=== PATIENT | female | born 2000 | race African-American/Black ===

== ENCOUNTER 2019-10-06 12:20 | Outpatient (CLI) | payer MEDICAID ==
[~2019-10-06] VITALS: Ht 165.1 cm; Wt 55.0 kg
[~2019-10-06 12:20] MED LIST: HYDR25CA PO; PRD20T PO
--- NOTE | 2019-10-06 12:45 | NUR ---
OSBALDO LYONS presented to unit via WC from ED, accompanied by S/O, with c/o ABD PAIN. OSBALDO LYONS weighed, gowned, voided, and to bed. EFHM and TOCO applied, VS taken. OSBALDO LYONS oriented to bed controls, call light, TV, heat, and A/C controls.
[2019-10-06 12:50] VITALS: BP 106/57
--- NOTE | 2019-10-06 12:50 | NUR ---
PT REPORTS LOWER LT ABDOMINAL PAIN JUST ABOVE HIP. PT NOTES PAIN RADIATES UP TO RIB AREA AT TIMES AND HAS BEEN HURTING SINCE YESTERDAY MORNING. PT REPORTS SEEING DR WING IN THE OFFICE YESTERDAY AND WAS TOLD IT WAS ROUND LIGAMENT PAIN AND TO USE TYLENOL AND WARM BATHS FOR PAIN RELIEF. PT DENIES DOING ANYTHING TO RELIEVE PAIN FOLLOWING APPOINTMENT. PT DENIES CONTRACTIONS, VAGINAL BLEEDING, LEAKING OF FLUID OR OTHER C/O. PT REPORTS FM. INITIAL ASSESSMENT COMPLETED, VSS, TOCO APPLIED, FHTS DOPPLERED AT 144 BPM. SEE INTERVENTIONS FOR DETAILED ASSESSMENTS. UA COLLECTED AND CBC DRAWN BY THIS RN, SENT TO LAB. NOTIFIED DR WING PRIOR TO PT ARRIVAL AND NEW ORDERS RECEIVED. DR WING PRESENT ON OB UNIT. WILL MONITOR CLOSELY.
[2019-10-06 13:00] VITALS: BP 106/57
[2019-10-06 13:14] LABS: BASOPHILS % (AUTO) 0 % (0-10); EOSINOPHILS # (AUTO) 0.1 10^3/uL (0.0-0.3); EOSINOPHILS % (AUTO) 1 % (0-10); HEMATOCRIT 34 % (35-52); HEMOGLOBIN 11.8 G/DL (11.5-16.0); LYMPHOCYTES # (AUTO) 1.6 X 10^3 (1.0-4.0); LYMPHOCYTES % (AUTO) 18 % (12-44); MEAN CORPUSCULAR HEMOGLOBIN 32 PG (25-34); MEAN CORPUSCULAR HGB CONC 35 G/DL (32-36); MEAN CORPUSCULAR VOLUME 90 FL (80-99); MEAN PLATELET VOLUME 10.3 FL (7.4-10.4); MONOCYTES # (AUTO) 0.6 X 10^3 (0.0-1.0); MONOCYTES % (AUTO) 7 % (0-12); NEUTROPHILS # (AUTO) 6.7 X 10^3 (1.8-7.8); NEUTROPHILS % (AUTO) 74 % (42-75); PLATELET COUNT 238 10^3/uL (130-400); RED CELL DISTRIBUTION WIDTH 12.6 % (10.0-14.5)
[2019-10-06 13:43] LABS: BILIRUBIN,URINE NEGATIVE (NEGATIVE); CLARITY,URINE SL CLOUDY; COLOR,URINE YELLOW; GLUCOSE, URINE (UA) NEGATIVE (NEGATIVE); KETONES,URINE NEGATIVE (NEGATIVE); LEUKOCYTE ESTERASE ,URINE NEGATIVE (NEGATIVE); NITRITE,URINE NEGATIVE (NEGATIVE); PROTEIN,URINE NEGATIVE (NEGATIVE)
[2019-10-06 14:11] LABS: AMORPHOUS SEDIMENT,UR FEW AMOR PHOSPHATE /LPF; BACTERIA,URINE MODERATE /HPF; WBC,URINE RARE /HPF
[2019-10-06] MEDS ORDERED: ACETAMINOPHEN 500 MG TAB (TYLENOL) PO PRN (15:45)
--- NOTE | 2019-10-06 16:00 | NUR ---
DR WING HERE, NEW ORDERS RECEIVED, REVIEWED LAB RESULTS. NO CONTRACTIONS NOTED THROUGHOUT MONITORING.
--- NOTE | 2019-10-06 16:20 | NUR ---
D/C INSTRUCTIONS EXPLAINED TO PT AND S/O, PT VERBALIZES UNDERSTANDING NO QUESTIONS NOTED, SIGNED, PT TO FOLLOW UP WITH DR SCHEDULED OR RETURN TO OB IF NEEDED.
--- NOTE | 2019-10-06 16:25 | NUR ---
PT TAKEN TO PRIVATE VEHICLE BY WC, S/O AT SIDE, NO DISTRESS NOTED.
--- NOTE | 2019-10-08 08:47 | Physician Query-Final Dx ---
AURY BOYKIN 10/08/19 0846: Clinic Account Progress/Dx Physician Query: Please give diagnosis Please give # weeks gestation Date of Service Oct 06, 2019 at 12:20 JAIME WING DO 10/08/19 2236: Clinic Account Progress/Dx DIAGNOSIS: Diagnosis 22 week gestation round ligament pain AURY BOYKIN Oct 08, 2019 08:46 JAIME WING DO Oct 08, 2019 22:36
== END 2019-10-06 16:25 | disposition home or self-care (01) ==
LOC: WSo 12:20
PROVIDERS: ATTEND Obstetrics & Gynecology
DX: O26.892 Other specified pregnancy related conditions, second trimester (principal); Z3A.22 22 weeks gestation of pregnancy
CPT/HCPCS: 36415; 81000; 85025; 99213

== ENCOUNTER → 2019-10-08 | Outpatient (CLI) | payer MEDICAID ==
--- NOTE | 2019-10-08 12:02 | Diagnostic Imaging Report ---
INDICATION: survey. TECHNIQUE: Multiple real-time grayscale images were obtained over the gravid uterus. COMPARISON: None. FINDINGS: There is a single live fetus in a breech presentation. heart rate was recorded at 150 bpm. Placenta is posterior. Amniotic fluid volume is normal. Cervical length is 3.7 cm. survey demonstrates kidneys, bladder and stomach to be unremarkable. Brain is unremarkable. There is a four-chamber heart. There is a three-vessel cord with normal insertion. Maternal adnexa was not evaluated. Biometrical measurements are as follows: Biparietal 4.79 cm, age 20 weeks 4 days. Head circumference 18.78 cm, age 21 weeks 1 days. Abdominal circumference 16.41 cm, age 21 weeks 4 days. Femur length 3.39 cm, age 20 weeks 5 days. Sonographic estimate age: 21 weeks 0 days. Sonographic estimated date of delivery: 02/17/2020. Estimated Weight: 397 gm (+/- 58 gm). LMP percentile: 40%. heart rate: 150 beats per minute. number: 1 of 1. IMPRESSION: Single live IUP 21 weeks 0 days gestational age. Estimated date of confinement sonographically is 02/17/2020. Dictated by: Dictated on workstation # [id number]
== END ==
LOC: RAD 09:47
PROVIDERS: ATTEND Obstetrics & Gynecology
DX: Z36.89 Encounter for other specified antenatal screening (principal); Z3A.21 21 weeks gestation of pregnancy
CPT/HCPCS: 76805

== ENCOUNTER → 2019-12-17 | Outpatient (CLI) | payer MEDICAID ==
--- NOTE | 2019-12-17 13:22 | Diagnostic Imaging Report ---
INDICATION: Assessment for interval growth TECHNIQUE: Multiple real-time grayscale images were obtained over the gravid uterus. COMPARISON: 10/08/2019 FINDINGS: A single viable currently in cephalic presentation. The placenta is along the posterior aspect without previa. Normal amount of amniotic fluid, index 13.1 cm. anatomical assessment was not performed. Maternal adnexa not visualized. The cervical length is 3.9 cm appears unremarkable. Biometrical measurements are as follows: Biparietal 7.68 cm, age 30 weeks 6 days. Head circumference 28.60 cm, age 31 weeks 3 days. Abdominal circumference 27.21 cm, age 31 weeks 3 days. Femur length 5.66 cm, age 29 weeks 6 days. Sonographic estimate age: 31 weeks 0 days. Sonographic estimated date of delivery: 02/18/2020. Estimated Weight: 1638 gm (+/- 239 gm). LMP percentile: 27%. heart rate: 150 beats per minute. number: 1 of 1. IMPRESSION: 1. Single viable currently in cephalic presentation, sonographic estimated age 31 weeks 0 days for an estimated date of delivery 02/18/2020. This corresponds to previous ultrasound dating. Dictated by: Dictated on workstation # [id number]
== END ==
LOC: RAD 10:36
PROVIDERS: ATTEND Nurse Practitioner Women's Health
DX: Z34.83 Encounter for supervision of other normal pregnancy, third trimester (principal); Z79.899 Other long term (current) drug therapy; Z72.0 Tobacco use; Z3A.31 31 weeks gestation of pregnancy
CPT/HCPCS: 76805

== ENCOUNTER 2020-02-07 19:56 | Inpatient (IN) | payer MEDICAID ==
[2020-02-07] VITALS (8 sets, daily range): BP systolic 109–130; BP diastolic 63–87
[~2020-02-07] VITALS: Ht 165 cm; Wt 63.5 kg
[~2020-02-07 19:56] MED LIST changes: +D5 LR IV SOLUTION 1,000 ML IV ONE
[2020-02-07] MEDS ORDERED: LACTATED RINGERS 1,000 ML IV SCH (19:58)
[2020-02-07] MEDS ORDERED: D5 LR IV SOLUTION 1,000 ML IV SCH (19:58)
[2020-02-07] MEDS ORDERED: TERBUTALINE INJ 1 MG/ML (BRETHINE) AMP SC PRN (20:00)
[2020-02-07] MEDS ORDERED: ZOLPIDEM 5 MG (AMBIEN) TAB PO PRN (20:00)
[2020-02-07] MEDS ORDERED: MINERAL OIL CONCENTRATE 99.9% 15 ML UDC TOP PRN ×2 (20:00)
[2020-02-07] MEDS ORDERED: MISOPROSTOL 100 MCG (CYTOTEC) TAB PO ONE (20:00)
[2020-02-07] MEDS ORDERED: LIDOCAINE 1% INJ 20 ML 20 ML VIAL INJ PRN (20:00)
--- NOTE | 2020-02-07 20:00 | NUR ---
OSBALDO LYONS presented to unit via from ED, accompanied by s/o, with c/o INDUCTION 38 01/14. OSBALDO LYONS weighed, gowned, voided, and to bed. EFHM and TOCO applied, VS taken. OSBALDO LYONS oriented to bed controls, call light, TV, heat, and A/C controls.
[2020-02-07] MEDS: D5 LR IV SOLUTION 1,000 ML IV SCH (20:41)
[2020-02-07 20:49] LABS: BASOPHILS % (AUTO) 0 % (0-10); EOSINOPHILS # (AUTO) 0.5 10^3/uL (0.0-0.3); EOSINOPHILS % (AUTO) 5 % (0-10); HEMATOCRIT 33 % (35-52); HEMOGLOBIN 10.9 G/DL (11.5-16.0); LYMPHOCYTES # (AUTO) 1.7 X 10^3 (1.0-4.0); LYMPHOCYTES % (AUTO) 18 % (12-44); MEAN CORPUSCULAR HEMOGLOBIN 30 PG (25-34); MEAN CORPUSCULAR HGB CONC 33 G/DL (32-36); MEAN CORPUSCULAR VOLUME 89 FL (80-99); MEAN PLATELET VOLUME 12.1 FL (7.4-10.4); MONOCYTES % (AUTO) 10 % (0-12); NEUTROPHILS # (AUTO) 6.2 X 10^3 (1.8-7.8); NEUTROPHILS % (AUTO) 67 % (42-75); PLATELET COUNT 199 10^3/uL (130-400); RED CELL DISTRIBUTION WIDTH 13.7 % (10.0-14.5); WHITE BLOOD COUNT 9.3 10^3/uL (4.3-11.0)
[2020-02-07 21:08] LABS: ALANINE AMINOTRANSFERASE 7 U/L (0-55); ALBUMIN 3.1 GM/DL (3.2-4.5); ALKALINE PHOSPHATASE 244 U/L (40-136); BILIRUBIN,TOTAL 0.2 MG/DL (0.1-1.0); BUN/CREATININE RATIO 10; CALCIUM 8.6 MG/DL (8.5-10.1); CARBON DIOXIDE 14 MMOL/L (21-32); CHLORIDE 108 MMOL/L (98-107); CREATININE SERUM 0.62 MG/DL (0.60-1.30); GFR ESTIMATED > 60; GLUCOSE 74 MG/DL (70-105); POTASSIUM 3.8 MMOL/L (3.6-5.0); SODIUM 137 MMOL/L (135-145); TOTAL PROTEIN 6.6 GM/DL (6.4-8.2); URIC ACID 4.7 MG/DL (2.6-7.2)
[2020-02-07 22:27] LABS: BILIRUBIN,URINE NEGATIVE (NEGATIVE); CLARITY,URINE SL CLOUDY; COLOR,URINE BROWN; GLUCOSE, URINE (UA) NEGATIVE (NEGATIVE); KETONES,URINE NEGATIVE (NEGATIVE); LEUKOCYTE ESTERASE ,URINE NEGATIVE (NEGATIVE); NITRITE,URINE NEGATIVE (NEGATIVE); PH,URINE 6.5 (5-9); PROTEIN,URINE 3+ (NEGATIVE)
[2020-02-07 22:40] LABS: AMORPHOUS SEDIMENT,UR MOD AMOR URATES /LPF; BACTERIA,URINE MODERATE /HPF; RBC,URINE 0-2 /HPF
[2020-02-08] VITALS (73 sets, daily range): BP systolic 80–155; BP diastolic 54–87
[2020-02-08] MEDS: MISOPROSTOL 100 MCG (CYTOTEC) TAB PO SCH ×2 (01:22→05:58)
[2020-02-08] MEDS: D5 LR IV SOLUTION 1,000 ML IV SCH ×2 (04:12→12:47)
[2020-02-08] MEDS ORDERED: morphine INJ 10 MG/ML 1ML (SYR OR VIAL) IVP STA (05:39)
[2020-02-08] MEDS ORDERED: morphine INJ 10 MG/ML 1ML (SYR OR VIAL) ONE (05:39)
[2020-02-08] MEDS ORDERED: PROMETHAZINE INJ 25 MG/ML (PHENERGAN) AMP ONE (05:42)
[2020-02-08] MEDS ORDERED: PROMETHAZINE INJ 25 MG/ML (PHENERGAN) AMP IVP PRN (05:45)
--- NOTE | 2020-02-08 10:18 | NUR ---
anesthesia notified of pt's request for epidural placement.
--- NOTE | 2020-02-08 10:23 | NUR ---
called to check on pt's status. update given, no new orders received @ time.
[2020-02-08] MEDS ORDERED: BUPIVACAINE 0.25% 30 ML (SENSORCAINE) VIAL ONE (10:24)
[2020-02-08] MEDS ORDERED: fentaNYL INJECTION 100 MCG/2 ML AMP ONE (10:24)
[2020-02-08] MEDS ORDERED: fentaNYL 2 mcg/ml BUPIVA 0.125 100 ML ONE (10:25)
--- NOTE | 2020-02-08 10:33 | NUR ---
AUGUSTA Negron here for epidural placement. Procedure explained, consent reviewed and signed by anesthesia. Questions answered to patient's satisfaction. Time out taken to verify correct patient/procedure. 1035- Patient up to side of bed, assisted into sitting position. Betadine prep done x3 and sterile drape applied. 1040- Local done, see anesthesia record. 1044- Test dose given, see anesthesia record for drug and dosage. Epidural catheter secured in place. Epidural placement complete. 1049-Assisted back into bed, monitors adjusted. Epidural dosed, see anesthesia record. 1050- Epidural of Sufenta/Bupvicaine @12cc/hr stated per pump. Patient tolerated procedure well.
[2020-02-08] MEDS ORDERED: LACTATED RINGERS 1,000 ML IV SCH (11:36)
[2020-02-08] MEDS ORDERED: EPIDURAL (fentaNYL 2 MCG/ML BUPIVA 0.125%)100 ML BAG EPI PRN (11:45)
[2020-02-08] MEDS ORDERED: diphenhydrAMINE 50 MG/ML INJ (BENADRYL) IV PRN (11:45)
[2020-02-08] MEDS ORDERED: NALOXONE 0.4 MG/ML 1 ML (NARCAN) VIAL IV PRN ×2 (11:45)
[2020-02-08] MEDS ORDERED: METOCLOPRAMIDE INJ 10 MG/2 ML (REGLAN) IV PRN (11:45)
[2020-02-08] MEDS ORDERED: ONDANSETRON 4 MG/2 ML (SDV) Z0FRAN IV PRN (11:45)
[2020-02-08] MEDS ORDERED: OXYTOCIN PRE-MIX DRIP 500 ML IV ONE (17:12)
[2020-02-08] MEDS: OXYTOCIN PRE-MIX DRIP 500 ML IV SCH ×2 (17:21→19:10)
[2020-02-08] MEDS ORDERED: MEASLES,MUMPS,RUBELLA 1 EA INJ SQ ONE (18:00)
[2020-02-08] MEDS ORDERED: BENZOCAINE/MENTHOL (DERMOPLAST) 60 ML CAN TP PRN (18:00)
[2020-02-08] MEDS ORDERED: WITCH HAZEL(TUCKS) 40 EA JAR TOP PRN (18:00)
[2020-02-08] MEDS ORDERED: TETANUS,DIPTH,PERTUSS P/F (BOOSTRIX) 0.5 ML VIAL IM ONE (18:00)
[2020-02-08] MEDS ORDERED: DIBUCAINE (NUPERCAINAL) 1% OINT 30 GM TOP PRN (18:00)
[2020-02-08] MEDS ORDERED: LIDOCAINE/EPI 2% 1:200,00 (XYLOCAINE) 20 ML VIAL ONE (18:20)
--- NOTE | 2020-02-08 18:53 | OB Labor & Delivery Record ---
Vag Delivery Note Vag Delivery Note Date of Delivery: 02/08/20 Preoperative Diagnosis: Mary Adan is a 19 /Para 1/0 ,Gestational Age 38 3/7 weeks, preeclampsia Postoperative Diagnosis: Same Surgeon: JAIME WING Anesthesia: epidural Delivery Type: vaginal Findings: male Viable male infant, apgars & weight pending Lacerations: bilateral labial abrasions Intact placenta with 3 vessel cord. No nuchal cord or shoulder dystocia. Body cord x 1 delivered through Estimated Blood Loss: 200 ml Complications: None Condition: Stable Description of Procedure: The patient is a 19 year old female who presented for induction of labor. She was admitted and informed consent was obtained. Her labor course was remarkable for cytotec x 3 doses, then spontaneous labor. Pitocin started approximately 8 cm with ROM at 9+. She progressed to complete dilatation and began to push. She was then set up for delivery. The infant's head was delivered atraumatically in the JOANA position. The shoulders and remainder of the 's body were then delivered without difficulty. Upon delivery, the head was held below the level of the perineum and the mouth and nares were bulb suctioned. The cord was doubly clamped and cut and the infant was handed off to the pediatric staff. An intact placenta with 3-vessel cord delivered via [place] and there was found to be minimal bleeding.~ Vigorous fundal massage was performed and the fundus was found to be firm. IV oxytocin was given. Examination of the vagina and perineum revealed bilateral labial laceration not repaired. Following the delivery, sponge, instrument and needle counts were correct. Mom and baby were both in stable condition in the labor suite. Vitals - Labs Vital Signs - I&O Vital Signs Date Time Temp Pulse Resp B/P (MAP) Pulse Ox O2 Delivery O2 Flow Rate FiO2 02/08/20 12:40 71 18 133/84 (100) 99 Room Air 02/08/20 12:25 69 18 126/83 (97) 99 Room Air 02/08/20 12:10 67 18 123/81 (95) 99 Room Air 02/08/20 11:55 63 18 145/82 (103) 99 Room Air 02/08/20 11:40 67 18 124/84 (97) 99 Room Air 02/08/20 11:35 70 18 129/80 (96) 99 Room Air 02/08/20 11:30 65 18 155/78 (103) 99 Room Air 02/08/20 11:25 70 18 129/80 (96) 99 Room Air 02/08/20 11:20 67 18 137/72 (93) 99 Room Air 02/08/20 11:15 69 18 126/73 (90) 98 Room Air 02/08/20 11:10 65 18 124/78 (93) 99 Room Air 02/08/20 11:05 68 18 124/71 (88) 99 Room Air 02/08/20 11:00 64 18 128/78 (95) 99 Room Air 02/08/20 10:55 63 18 129/76 (93) 100 Room Air 02/08/20 10:50 35.9 58 18 135/85 (102) 100 Room Air 02/08/20 10:45 58 18 127/70 (89) 100 Room Air 02/08/20 10:40 63 18 129/76 (93) 100 Room Air 02/08/20 10:30 82 18 117/69 (85) 96 Room Air 02/08/20 10:02 71 18 125/84 (98) Room Air 02/08/20 09:00 60 18 143/76 (98) Room Air 02/08/20 08:30 58 18 107/62 (77) Room Air 02/08/20 08:00 68 18 112/63 (79) Room Air 02/08/20 07:50 36.9 63 18 114/63 (80) Room Air 02/08/20 07:30 71 18 120/58 (78) Room Air 02/08/20 07:05 76 18 119/65 (83) Room Air 02/08/20 06:35 61 18 120/70 (87) Room Air 02/08/20 06:05 64 18 128/81 (97) Room Air 02/08/20 05:35 53 18 124/80 (95) Room Air 02/08/20 05:05 55 18 80/54 (63) Room Air 02/08/20 04:35 36.6 74 18 142/74 (96) Room Air 02/08/20 04:05 87 18 130/60 (83) Room Air 02/08/20 03:35 56 18 129/81 (97) Room Air 02/08/20 03:05 77 18 109/62 (78) Room Air 02/08/20 02:35 70 18 101/57 (72) Room Air 02/08/20 02:05 78 18 123/66 (85) Room Air 02/08/20 01:35 71 18 111/61 (78) Room Air 02/08/20 01:05 73 18 101/56 (71) 98 Room Air 02/08/20 00:35 76 18 119/70 (86) 98 Room Air 02/08/20 00:15 36.5 86 18 111/62 (78) 98 Room Air 02/07/20 23:45 90 18 109/68 (82) 98 Room Air 02/07/20 23:15 75 18 112/63 (79) 98 Room Air 02/07/20 22:35 85 18 130/81 (97) 98 Room Air 02/07/20 22:05 86 18 122/71 (88) 98 Room Air 02/07/20 21:36 36.5 92 18 98 Room Air 02/07/20 21:35 85 18 128/81 (97) 98 Room Air 02/07/20 21:05 80 18 125/82 (96) 98 Room Air 02/07/20 20:15 36.5 92 18 127/87 (100) 98 Room Air Labs Laboratory Tests 02/07/20 20:15: White Blood Count 9.3, Red Blood Count 3.69L, Hemoglobin 10.9L, Hematocrit 33L, Mean Corpuscular Volume 89, Mean Corpuscular Hemoglobin 30, Mean Corpuscular Hemoglobin Concent 33, Red Cell Distribution Width 13.7, Platelet Count 199, Mean Platelet Volume 12.1H, Neutrophils (%) (Auto) 67, Lymphocytes (%) (Auto) 18, Monocytes (%) (Auto) 10, Eosinophils (%) (Auto) 5, Basophils (%) (Auto) 0, Neutrophils # (Auto) 6.2, Lymphocytes # (Auto) 1.7, Monocytes # (Auto) 1.0, Eosinophils # (Auto) 0.5H, Basophils # (Auto) 0.0, Urine Color BROWNH, Urine Clarity SL CLOUDY, Urine pH 6.5, Urine Specific [place] >=1.030, Urine Protein 3+H, Urine Glucose (UA) NEGATIVE, Urine Ketones NEGATIVE, Urine Nitrite NEGATIVE, Urine Bilirubin NEGATIVE, Urine Urobilinogen 1.0, Urine Leukocyte Esterase NEGATIVE, Urine RBC (Auto) NEGATIVE, Urine RBC 0-2, Urine WBC 2-5, Urine Squamous Epithelial Cells 5-10, Urine Crystals PRESENTH, Urine Amorphous Sediment MOD CHRISTIAN URATESH, Urine Bacteria MODERATEH, Urine Casts NONE, Urine Mucus MODERATEH, Urine Culture Indicated YES, Sodium Level 137, Potassium Level 3.8, Chloride Level 108H, Carbon Dioxide Level 14L, Anion Gap 15H, Blood Urea Nitrogen 6L, Creatinine 0.62, Estimat Glomerular Filtration Rate > 60, BUN/Creatinine Ratio 10, Glucose Level 74, Uric Acid 4.7, Calcium Level 8.6, Corrected Calcium 9.3, Total Bilirubin 0.2, Aspartate Amino Transf (AST/SGOT) 19, Alanine Aminotransferase (ALT/SGPT) 7, Alkaline Phosphatase 244H, Lactate Dehydrogenase 326H, Total Protein 6.6, Albumin 3.1L Microbiology 02/07/20 Urine Culture - Final, Complete 3 or more isolates JAIME WING DO February 08, 2020 18:53
--- NOTE | 2020-02-08 19:30 | NUR ---
Bedside report received. pt still in stirrups. ff 1 below. light rubra. pericare completed. pad applied. pt requesting cold tray. cold tray given. pt denies any further needs. will continue to monitor.
[2020-02-08] MEDS: ACETAMINOPHEN 500 MG TAB (TYLENOL) PO SCH (19:41)
[2020-02-08] MEDS: IBUPROFEN 600 MG (MOTRIN) TAB PO SCH (19:41)
[2020-02-08] MEDS: DOCUSATE SODIUM 100 MG (COLACE) CAP PO SCH (20:59)
--- NOTE | 2020-02-08 21:00 | NUR ---
Epidural cath removed. Pt tolerated well. bandage applied over site.
[2020-02-08] MEDS ORDERED: CATHETER FLUSH 10 ML SYR IV SCH (22:00)
--- NOTE | 2020-02-08 22:00 | NUR ---
Pt ambulated to w'c and taken down to room 312. Pt orientated to room. pt ambulated to bathroom. positive void. Pericare completed. pt ambulated to bed. info papers discussed. Pt denies any needs at this time. will continue to monitor. s/o at bedside.
[2020-02-09] VITALS: BP 116/70
[2020-02-09] MEDS: IBUPROFEN 600 MG (MOTRIN) TAB PO SCH ×4 (03:16→20:30)
[2020-02-09] MEDS: ACETAMINOPHEN 500 MG TAB (TYLENOL) PO SCH ×4 (03:16→20:30)
[2020-02-09 03:34] VITALS: BP 126/79
[2020-02-09 06:33] LABS: BASOPHILS % (AUTO) 0 % (0-10); EOSINOPHILS # (AUTO) 0.3 10^3/uL (0.0-0.3); EOSINOPHILS % (AUTO) 3 % (0-10); HEMATOCRIT 32 % (35-52); HEMOGLOBIN 10.4 G/DL (11.5-16.0); LYMPHOCYTES # (AUTO) 1.8 X 10^3 (1.0-4.0); LYMPHOCYTES % (AUTO) 18 % (12-44); MEAN CORPUSCULAR HEMOGLOBIN 29 PG (25-34); MEAN CORPUSCULAR HGB CONC 32 G/DL (32-36); MEAN CORPUSCULAR VOLUME 89 FL (80-99); MEAN PLATELET VOLUME 12.4 FL (7.4-10.4); MONOCYTES # (AUTO) 0.9 X 10^3 (0.0-1.0); MONOCYTES % (AUTO) 9 % (0-12); NEUTROPHILS # (AUTO) 6.9 X 10^3 (1.8-7.8); NEUTROPHILS % (AUTO) 70 % (42-75); PLATELET COUNT 180 10^3/uL (130-400); WHITE BLOOD COUNT 9.9 10^3/uL (4.3-11.0)
--- NOTE | 2020-02-09 09:33 | Anesthesia-Regional Post-Op ---
Regional Patient Condition Mental Status: Alert, Oriented x3 Circulation: Same as Pre-Op Headache: Absent Sensation: Full Recovery Motor Block: Absent Post Op Complications Complications None Follow Up Care/Instructions Patient Instructions None needed. Anesthesia/Patient Condition Patient is doing well, no complaints, stable vital signs, no apparent adverse anesthesia problems. No complications reported per nursing. FERNANDO HARRY CRNA February 09, 2020 09:33
[2020-02-09] MEDS: FERROUS SULF 325 MG (IRON) TAB PO SCH (09:50)
[2020-02-09] MEDS: DOCUSATE SODIUM 100 MG (COLACE) CAP PO SCH ×2 (09:51→20:30)
[2020-02-09 09:53] VITALS: BP 117/72
--- NOTE | 2020-02-09 09:53 | NUR ---
Initial shift assessment completed, see interventions for further.
--- NOTE | 2020-02-09 14:06 | Postpartum Progress Note ---
Note Note Day # 1 s/p mild preeclampsi Subjective: Patient is without complaints. Ambulating, voiding. Tolerating a regular diet without nausea or vomiting. Normal lochia. Pain is well controlled with oral pain medications. breast feeding. Objective: 02/09/20 02/09/20 03:34 09:53 Temp 36.6 36.6 Pulse 71 78 Resp 18 18 B/P (MAP) 126/79 (95) 117/72 (87) Pulse Ox 99 99 O2 Delivery Room Air Room Air 02/09/20 00:00 Intake Total 1000 ml Balance 1000 ml Laboratory Tests Test 02/09/20 06:16 Range/Units White Blood Count 9.9 4.3-11.0 10^3/uL Red Blood Count 3.64 L 4.35-5.85 10^6/uL Hemoglobin 10.4 L 11.5-16.0 G/DL Hematocrit 32 L 35-52 % Mean Corpuscular Volume 89 80-99 FL Mean Corpuscular Hemoglobin 29 25-34 PG Mean Corpuscular Hemoglobin Concent 32 32-36 G/DL Red Cell Distribution Width 14.0 10.0-14.5 % Platelet Count 180 130-400 10^3/uL Mean Platelet Volume 12.4 H 7.4-10.4 FL Neutrophils (%) (Auto) 70 42-75 % Lymphocytes (%) (Auto) 18 12-44 % Monocytes (%) (Auto) 9 0-12 % Eosinophils (%) (Auto) 3 0-10 % Basophils (%) (Auto) 0 0-10 % Neutrophils # (Auto) 6.9 1.8-7.8 X 10^3 Lymphocytes # (Auto) 1.8 1.0-4.0 X 10^3 Monocytes # (Auto) 0.9 0.0-1.0 X 10^3 Eosinophils # (Auto) 0.3 0.0-0.3 10^3/uL Basophils # (Auto) 0.0 0.0-0.1 10^3/uL Physical Exam: General - Alert and oriented, no apparent distress Abdomen - Soft, appropriately tender to palpation, non-distended, fundus firm at umbilicus Extremities - 2+ edema, negative Kaila's bilaterally Assessment: 1. post- day #1, status post spontaneous vaginal delivery. Recovering well, hemodynamically stable Plan: Routine care. Encourage breast feeding. Encourage ambulation. Ferrous sulfate supplementation. Plan for discharge tomorrow Vitals - Labs Vital Signs - I&O Vital Signs Date Time Temp Pulse Resp B/P (MAP) Pulse Ox O2 Delivery O2 Flow Rate FiO2 02/09/20 09:53 36.6 78 18 117/72 (87) 99 Room Air 02/09/20 03:34 36.6 71 18 126/79 (95) 99 Room Air 02/09/20 00:00 36.5 75 18 116/70 (85) 99 Room Air 02/08/20 21:30 94 18 128/77 (94) 99 Room Air 02/08/20 21:15 96 18 134/75 (94) 99 Room Air 02/08/20 21:00 36.6 78 18 128/78 (95) 99 Room Air 02/08/20 20:45 36.6 96 18 128/86 (100) 99 Room Air 02/08/20 20:30 99 18 123/78 (93) 99 Room Air 02/08/20 20:15 93 18 125/74 (91) 99 Room Air 02/08/20 20:00 36.6 76 18 133/76 (95) 99 Room Air 02/08/20 19:45 48 18 101/66 (78) 99 Room Air 02/08/20 19:30 36.6 82 18 147/73 (97) 99 Room Air I & O 02/09/20 07:00 Intake Total 1000 ml Balance 1000 ml Labs Laboratory Tests 02/09/20 06:16: White Blood Count 9.9, Red Blood Count 3.64L, Hemoglobin 10.4L, Hematocrit 32L, Mean Corpuscular Volume 89, Mean Corpuscular Hemoglobin 29, Mean Corpuscular Hemoglobin Concent 32, Red Cell Distribution Width 14.0, Platelet Count 180, Mean Platelet Volume 12.4H, Neutrophils (%) (Auto) 70, Lymphocytes (%) (Auto) 18, Monocytes (%) (Auto) 9, Eosinophils (%) (Auto) 3, Basophils (%) (Auto) 0, Neutrophils # (Auto) 6.9, Lymphocytes # (Auto) 1.8, Monocytes # (Auto) 0.9, Eosinophils # (Auto) 0.3, Basophils # (Auto) 0.0 Microbiology 02/07/20 Urine Culture - Final, Complete 3 or more isolates JAIME WING DO February 09, 2020 14:06
[2020-02-09 15:20] VITALS: BP 130/69
[2020-02-09] MEDS: PRENATAL VITAMIN 1 EA TAB PO SCH (15:22)
--- NOTE | 2020-02-09 19:12 | NUR ---
report given to HECTOR Weiss.
[2020-02-09 21:00] VITALS: BP 132/79
--- NOTE | 2020-02-09 21:00 | NUR ---
PT SITTING UP IN BED WATCHING TV. ASSESSMENT COMPLETED. PT DENIES ANY NEEDS AT THIS TIME. WILL CONTINUE TO MONITOR
[2020-02-10] MEDS: ACETAMINOPHEN 500 MG TAB (TYLENOL) PO SCH (04:46)
[2020-02-10] MEDS: IBUPROFEN 600 MG (MOTRIN) TAB PO SCH (04:46)
[2020-02-10 04:58] VITALS: BP 138/86
[2020-02-10 09:09] VITALS: BP 120/69
--- NOTE | 2020-02-10 09:09 | NUR ---
AM shift assessment completed and vital signs obtained, see interventions. Plan of care reviewed with patient. Patient verbalizes understanding and denies any current questions or concerns at this time. Scheduled PNV, Colace, and Iron PO given.
[2020-02-10] MEDS: FERROUS SULF 325 MG (IRON) TAB PO SCH (09:11)
[2020-02-10] MEDS: DOCUSATE SODIUM 100 MG (COLACE) CAP PO SCH (09:11)
[2020-02-10] MEDS: PRENATAL VITAMIN 1 EA TAB PO SCH (09:11)
[2020-02-10] MEDS ORDERED: IBUP-844 PO (11:20)
[2020-02-10] MEDS ORDERED: ACET-93 PO (11:20)
--- NOTE | 2020-02-10 11:22 | Discharge Inst-Women's Service ---
Discharge Inst-Women's Serv Depart Medication/Instructions New, Converted or Re-Newed RX: Transmitted to Pharmacy Final Diagnosis preeclampsia induction vaginal delivery Problems Reviewed?: Yes Consults/Follow Up Additional Follow Up: Yes (1week with Shari at office for BP and wellness check Call tuesday. 6 week pp exam) Activity Activity: Activity as Tolerated Driving Instructions: You May Drive NO SMOKING: NO SMOKING Nothing Inside Vagina: No Douching, No [place], No Tampons Diet Discharge Diet: No Restrictions Symptoms to Report to : Swelling Increased, Pain Increased, Fever Over 101 Degrees F, Vaginal Bleeding Increase, Cramps in Feet or Legs, Vaginal Discharge Foul For Any Problems or Questions: Contact Your Physician JAIME WING DO February 10, 2020 11:22
--- NOTE | 2020-02-10 11:44 | NUR ---
Discharge instructions and medications reviewed with patient both written and verbally. Patient verbalizes understanding and questions answered.
--- NOTE | 2020-02-10 12:41 | NUR ---
Patient discharged at this time via wheelchair and accompanied down to awaiting private vehicle by this RN. No signs or symptoms of distress noted.
== END 2020-02-10 12:41 | disposition home or self-care (01) | DRG 807 ==
LOC: LDRP 19:56
PROVIDERS: ADMIT Obstetrics & Gynecology; ATTEND Obstetrics & Gynecology
PROC: 3E0DXGC Introduction of Other Therapeutic Substance into Mouth and Pharynx, External Approach (ICD-10-PCS; 2020-02-07)
PROC: 10E0XZZ Delivery of Products of Conception, External Approach (ICD-10-PCS; principal; 2020-02-08)
DX: O14.94 Unspecified pre-eclampsia, complicating childbirth (principal); Z37.0 Single live birth; O69.82X0 Labor and delivery complicated by other cord entanglement, without compression, not applicable or unspecified; O71.82 Other specified trauma to perineum and vulva; Z3A.38 38 weeks gestation of pregnancy; O99.334 Smoking (tobacco) complicating childbirth; F17.210 Nicotine dependence, cigarettes, uncomplicated; O99.52 Diseases of the respiratory system complicating childbirth; J45.909 Unspecified asthma, uncomplicated; O99.344 Other mental disorders complicating childbirth; F41.9 Anxiety disorder, unspecified; O26.893 Other specified pregnancy related conditions, third trimester; M41.9 Scoliosis, unspecified
CPT/HCPCS: 36415; 80053; 81000; 83615; 84550; 85025; 86850; 86900; 86901; 87088

== ENCOUNTER 2021-03-28 17:54 | Emergency (ER) | payer MEDICAID ==
[~2021-03-28] VITALS: Ht 165 cm; Wt 54.0 kg
[~2021-03-28 17:54] MED LIST changes: +ACET-93 PO; -D5 LR IV SOLUTION 1,000 ML IV ONE; +IBUP-844 PO
[2021-03-28] MEDS ORDERED: RT-ALBUTEROL/IPRATROPIUM 3 ML (DUONEB) VIAL INH ONE (18:45)
--- NOTE | 2021-03-28 18:51 | ED Cough/URI ---
General Chief Complaint: Cough/Cold/Flu Symptoms Stated Complaint: SOA/WEAK/DIZZINESS Source: patient Exam Limitations: no limitations History of Present Illness Date Seen by Provider: Mar 28, 2021 Time Seen by Provider: 18:40 Initial Comments TO ER with c/o nasal congestion general weakness shortness of breath since last night. Her kids and also have similar symptoms. No fever. Not vaccinated against Covid. She is 14 weeks gestation. Timing/Duration: constant Severity/Quality: moderate Associated Symptoms: cough, fever/chills, nasal congestion, shortness of breath Allergies and Home Medications Allergies Coded Allergies: No Known Drug Allergies (Unverified , 06/21/16) Home Medications Acetaminophen 500 Mg Tablet, 1,000 MG PO Q6HR Prescribed by: JAIME WING on 02/10/20 1120 Ibuprofen 600 Mg Tablet, 600 MG PO Q6HR Prescribed by: JAIME WING on 02/10/20 1120 Patient Home Medication List Home Medication List Reviewed: Yes Review of Systems Review of Systems Constitutional: see HPI, chills, fever EENTM: see HPI, nose congestion Respiratory: see HPI, cough, short of breath Genitourinary: no symptoms reported Musculoskeletal: no symptoms reported Skin: no symptoms reported Psychiatric/Neurological: No Symptoms Reported Past Zvfokyl-Iklsof-Zwfisx Hx Patient Social History Alcohol Use: Denies Use Smoking Status: Current Everyday Smoker Type Used: Cigarettes 2nd Hand Smoke Exposure: No Recent Hopitalizations: No Immunizations Up To Date Tetanus Booster (TDap): Unknown PED Vaccines UTD: Yes Date of Influenza Vaccine: Aug 22, 2019 Seasonal Allergies Seasonal Allergies: No Past Medical History Surgeries: No Respiratory: Yes Asthma Cardiac: No Neurological: No Reproductive Disorders: No Genitourinary: No Gastrointestinal: No Musculoskeletal: No Endocrine: No HEENT: No Cancer: No Psychosocial: Yes Anxiety, Depression Integumentary: No Blood Disorders: No Adverse Reaction/Blood Tranf: No Family Medical History Seizure disorder 17 MOTHER Physical Exam Vital Signs - First Documented 03/28/21 03/28/21 18:40 19:27 Temp 36.6 Pulse 96 Resp 20 B/P (MAP) 107/69 (82) Pulse Ox 100 O2 Delivery Room Air Capillary Refill : Height: 5'5" Weight: 130lbs. oz. 58.436540kt; 23.32 BMI Method:Stated General Appearance: WD/WN, no apparent distress Eyes: Bilateral Eye Normal Inspection, Bilateral Eye PERRL, Bilateral Eye EOMI Neck: non-tender, full range of motion Respiratory: no respiratory distress, no accessory muscle use, other (Faint expiratory wheeze on the right sats are 100% room air she is not tachypneic) Cardiovascular: regular rate, rhythm, no murmur Gastrointestinal: normal bowel sounds, non tender, soft Neurologic/Psychiatric: alert, normal mood/affect, oriented x 3 Skin: normal color, warm/dry Progress/Results/Core Measures Suspected Sepsis SIRS Temperature: Pulse: Respiratory Rate: Laboratory Tests 03/28/21 19:02: White Blood Count 6.4 Blood Pressure / Mean: Laboratory Tests 03/28/21 19:02: Creatinine 0.64, Platelet Count 233 Results/Orders Lab Results Laboratory Tests Test 03/28/21 19:02 Range/Units White Blood Count 6.4 4.3-11.0 10^3/uL Red Blood Count 3.86 3.80-5.11 10^6/uL Hemoglobin 12.1 11.5-16.0 g/dL Hematocrit 35 35-52 % Mean Corpuscular Volume 92 80-99 fL Mean Corpuscular Hemoglobin 31 25-34 pg Mean Corpuscular Hemoglobin Concent 34 32-36 g/dL Red Cell Distribution Width 13.1 10.0-14.5 % Platelet Count 233 130-400 10^3/uL Mean Platelet Volume 10.3 9.0-12.2 fL Immature Granulocyte % (Auto) 0 % Neutrophils (%) (Auto) 67 42-75 % Lymphocytes (%) (Auto) 20 12-44 % Monocytes (%) (Auto) 10 0-12 % Eosinophils (%) (Auto) 3 0-10 % Basophils (%) (Auto) 1 0-10 % Neutrophils # (Auto) 4.3 1.8-7.8 10^3/uL Lymphocytes # (Auto) 1.3 1.0-4.0 10^3/uL Monocytes # (Auto) 0.6 0.0-1.0 10^3/uL Eosinophils # (Auto) 0.2 0.0-0.3 10^3/uL Basophils # (Auto) 0.0 0.0-0.1 10^3/uL Immature Granulocyte # (Auto) 0.0 0.0-0.1 10^3/uL Sodium Level 137 135-145 MMOL/L Potassium Level 3.5 L 3.6-5.0 MMOL/L Chloride Level 104 98-107 MMOL/L Carbon Dioxide Level 22 21-32 MMOL/L Anion Gap 11 5-14 MMOL/L Blood Urea Nitrogen 5 L 7-18 MG/DL Creatinine 0.64 0.60-1.30 MG/DL Estimat Glomerular Filtration Rate > 60 BUN/Creatinine Ratio 8 Glucose Level 55 *L 70-105 MG/DL Calcium Level 8.6 8.5-10.1 MG/DL My Orders Orders - EVARISTO LUNDBERG APRN Chest 1 View, Ap/Pa Only (03/28/21 18:41) Cbc With Automated Diff (03/28/21 18:41) Basic Metabolic Panel (03/28/21 18:41) Covid 19 Inhouse Test (03/28/21 18:41) Influenza A And B By Pcr (03/28/21 18:41) Albuterol/Ipra Inhalation Soln (Duoneb I (03/28/21 18:45) Svn Small Volume Nebulizer (03/28/21 18:41) Nicotine Patch (Nicoderm Patch) (03/28/21 19:00) BNP (03/28/21 18:56) Prednisone Tablet (Deltasone Tablet) (03/28/21 19:45) Dextrose 40% Oral Gel (Glutose 15 Oral G (03/28/21 19:45) Medications Given in ED Current Medications Medications Dose Ordered Sig/Mando Route Start Time Stop Time Status Last Admin Dose Admin Albuterol/ Ipratropium 3 ml ONCE ONCE INH 03/28/21 18:45 03/28/21 18:46 DC 03/28/21 19:27 3 ML Prednisone 40 mg ONCE ONCE PO 03/28/21 19:45 03/28/21 19:46 DC 03/28/21 19:37 40 MG Vital Signs/I&O 03/28/21 03/28/21 18:40 19:27 Temp 36.6 Pulse 96 Resp 20 B/P (MAP) 107/69 (82) Pulse Ox 100 100 O2 Delivery Room Air Capillary Refill : Departure Impression Primary Impression: Upper respiratory infection Disposition: 01 HOME, SELF-CARE Condition: Stable Departure-Patient Inst. Decision time for Depature: 18:53 Referrals: THAIS KEEN (PCP/Family) Primary Care Physician Patient Instructions: NO INSTRUCTIONS GIVEN EVARISTO LUNDBERG [employer] DRIVER TE[employer]STER Mar 28, 2021 18:51
[2021-03-28] MEDS ORDERED: NICOTINE 14 MG (NICODERM) PATCH TD ONE (19:00)
--- NOTE | 2021-03-28 19:11 | Diagnostic Imaging Report ---
EXAM: Chest 1 view, AP/PA only. INDICATION: Cough. COMPARISON: None. FINDINGS: Normal heart size and central pulmonary vascularity. No focal pulmonary opacity. No pleural effusion or pneumothorax. No acute osseous finding. IMPRESSION: Negative chest. Dictated by: Dictated on workstation # [id number]
[2021-03-28 19:13] LABS: BASOPHILS % (AUTO) 1 % (0-10); EOSINOPHILS # (AUTO) 0.2 10^3/uL (0.0-0.3); EOSINOPHILS % (AUTO) 3 % (0-10); HEMATOCRIT 35 % (35-52); HEMOGLOBIN 12.1 g/dL (11.5-16.0); LYMPHOCYTES # (AUTO) 1.3 10^3/uL (1.0-4.0); LYMPHOCYTES % (AUTO) 20 % (12-44); MEAN CORPUSCULAR HEMOGLOBIN 31 pg (25-34); MEAN CORPUSCULAR HGB CONC 34 g/dL (32-36); MEAN CORPUSCULAR VOLUME 92 fL (80-99); MEAN PLATELET VOLUME 10.3 fL (9.0-12.2); MONOCYTES # (AUTO) 0.6 10^3/uL (0.0-1.0); MONOCYTES % (AUTO) 10 % (0-12); NEUTROPHILS # (AUTO) 4.3 10^3/uL (1.8-7.8); NEUTROPHILS % (AUTO) 67 % (42-75); PLATELET COUNT 233 10^3/uL (130-400); WHITE BLOOD COUNT 6.4 10^3/uL (4.3-11.0)
[2021-03-28 19:20] LABS: CHLORIDE 104 MMOL/L (98-107)
[2021-03-28 19:21] LABS: POTASSIUM 3.5 MMOL/L (3.6-5.0); SODIUM 137 MMOL/L (135-145)
[2021-03-28 19:22] LABS: CALCIUM 8.6 MG/DL (8.5-10.1)
[2021-03-28 19:24] LABS: CARBON DIOXIDE 22 MMOL/L (21-32)
[2021-03-28 19:26] LABS: CREATININE SERUM 0.64 MG/DL (0.60-1.30); GFR ESTIMATED > 60
[2021-03-28 19:27] LABS: BUN/CREATININE RATIO 8
[2021-03-28 19:28] LABS: GLUCOSE 55 MG/DL (70-105)
[2021-03-28] MEDS ORDERED: DEXTROSE 40% ORAL GEL 37.5 ML TUBE PO ONE (19:45)
[2021-03-28] MEDS ORDERED: predniSONE 20 MG TAB PO ONE (19:45)
[2021-03-28 19:58] VITALS: BP 107/64
== END 2021-03-28 19:53 | disposition home or self-care (01) ==
LOC: EDUNIT# 17:54 → ER 17:56
DX: O99.512 Diseases of the respiratory system complicating pregnancy, second trimester (principal); J06.9 Acute upper respiratory infection, unspecified; J45.909 Unspecified asthma, uncomplicated; F17.210 Nicotine dependence, cigarettes, uncomplicated; Z20.822 Contact with and (suspected) exposure to COVID-19; Z3A.14 14 weeks gestation of pregnancy
CPT/HCPCS: 36415; 71045; 80048; 83880; 85025; 87636; 94640

== ENCOUNTER → 2021-04-29 | Outpatient (CLI) | payer MEDICAID ==
--- NOTE | 2021-04-29 16:36 | Diagnostic Imaging Report ---
INDICATION: survey. Forman viable IUP is in cephalic position, normal volume amniotic fluid present. The placenta is posterior with no abruption or previa. The nondilated cervix measures 4.4 cm and there is a 6.5 cm between the closed internal os and the caudal tip of the intact posterior placenta. The heart rate is a regular 146 bpm, no pathological finding at the anatomical survey however the intracranial structures are suboptimally evaluated on a positional basis. No pathological finding identified. Sonographic age is 19 weeks 5 days for an estimated date of delivery of 09/18/2021. IMPRESSION: 1. 19 week 5 day forman viable IUP, no pathological finding identified. 2. Positioning limits evaluation of the intracranial structures, the remaining anatomical survey was normal. TECHNIQUE: Multiple real-time grayscale images were obtained over the gravid uterus. COMPARISON: None FINDINGS: Biometrical measurements are as follows: Biparietal 4.66 cm, age 20 weeks 1 days. Head circumference 17.23 cm, age 19 weeks 6 days. Abdominal circumference 14.12 cm, age 19 weeks 4 days. Femur length 2.94 cm, age 19 weeks 1 days. Sonographic estimate age: 19 weeks 5 days. Sonographic estimated date of delivery: 09/18/2021. Estimated Weight: 288 gm (+/- 42 gm). LMP percentile: 59%. heart rate: 146 beats per minute. number: 1 of 1. IMPRESSION: Dictated by: Dictated on workstation # [id number]
== END ==
LOC: RAD 14:00
PROVIDERS: ATTEND Obstetrics & Gynecology
DX: Z34.92 Encounter for supervision of normal pregnancy, unspecified, second trimester (principal); Z3A.19 19 weeks gestation of pregnancy
CPT/HCPCS: 76805

== ENCOUNTER → 2021-06-25 | Outpatient (CLI) | payer MEDICAID ==
--- NOTE | 2021-06-25 13:51 | Diagnostic Imaging Report ---
INDICATION: Followup head anatomy. TECHNIQUE: Multiple real-time grayscale images were obtained over the gravid uterus. COMPARISON: 04/29/2021. FINDINGS: A single live fetus in a cephalic presentation. heart rate was recorded 152 bpm. Placenta is posterior. Amniotic fluid volume is normal. head anatomy was well visualized today and appears unremarkable. There is a 4 chamber heart. spine is unremarkable. A profile with nose and lips are also unremarkable. Cervical length is 4.0 cm. IMPRESSION: Unremarkable followup obstetrical ultrasound. Dictated by: Dictated on workstation # [id number]
== END ==
LOC: RAD 12:00
PROVIDERS: ATTEND Obstetrics & Gynecology
DX: Z36.89 Encounter for other specified antenatal screening (principal)
CPT/HCPCS: 76816

== ENCOUNTER 2021-08-16 22:45 | Outpatient (CLI) | payer MEDICAID ==
[~2021-08-16] VITALS: Ht 165.1 cm; Wt 68.2 kg
[2021-08-16 23:26] VITALS: BP 120/61
[2021-08-17 00:31] VITALS: BP 120/61
--- NOTE | 2021-08-17 08:26 | Physician Query-Final Dx ---
BÁRBARA MUSE 08/17/21 0826: Clinic Account Progress/Dx Physician Query: Please give diagnosis Please include # weeks gestation Date of Service Aug 16, 2021 at 22:45 THAIS LOYD DO 08/19/21 1728: Clinic Account Progress/Dx DIAGNOSIS: Diagnosis 33 week IUP Irregular denice burch contractions BÁRBARA MUSE Aug 17, 2021 08:26 THAIS LOYD DO Aug 19, 2021 17:28
== END 2021-08-16 23:46 ==
LOC: WSo 22:45 → LDRP 22:45 → WSo 23:46
PROVIDERS: ATTEND Obstetrics & Gynecology
DX: O47.03 False labor before 37 completed weeks of gestation, third trimester (principal); Z3A.33 33 weeks gestation of pregnancy
CPT/HCPCS: 99213

== ENCOUNTER 2021-08-29 17:20 | Outpatient (CLI) | payer MEDICAID ==
[~2021-08-29] VITALS: Ht 165.1 cm; Wt 64.8 kg
[2021-08-29 17:42] VITALS: BP 118/70
[2021-08-29 18:31] LABS: BILIRUBIN,URINE NEGATIVE (NEGATIVE); CLARITY,URINE CLEAR; COLOR,URINE YELLOW; GLUCOSE, URINE (UA) NEGATIVE (NEGATIVE); KETONES,URINE NEGATIVE (NEGATIVE); LEUKOCYTE ESTERASE ,URINE TRACE (NEGATIVE); NITRITE,URINE NEGATIVE (NEGATIVE); PROTEIN,URINE NEGATIVE (NEGATIVE)
[2021-08-29 18:49] LABS: BACTERIA,URINE TRACE /HPF; WBC,URINE RARE /HPF
--- NOTE | 2021-08-29 19:27 | OB Triage Report ---
Standard Progress Note Progress Notes/Assess & Plan Date Seen by a Provider: Aug 29, 2021 Time Seen by a Provider: 19:27 Expected Date of Delivery: Sep 22, 2021 Gestational Age in Weeks: 36 Gestational Age in Days: 4 LMP/RYLAN Comment: RYLAN: 09/22/2021 Progress/Assessment & Plan 20 yo with IUP at 36w4d who presents for bilateral inguinal discomfort after running after her son. Likely musculoskeletal discomfort - Patient comfortable with improvement in symptoms and not requiring pain medications while in triage - Discomfort is only noted with activity - Hungry while in triage and requested to eat a sandwich - SVE 3-4/50/-3 and unchanged over 2hr labor check in triage per RN evaluation - FHR reactive - uterine contractions noted q3-5 min on tocodynamometer, and not perceived by patient - Encouraged PO hydration - Reassurance provided and instructions for supportive therapy discussed Final Diagnosis Bilateral inguinal discomfort: musculoskeletal Diagnosis/Problems Diagnosis/Problems (1) Pelvic pain affecting Status: Acute (2) with 36 completed weeks gestation Status: Acute JESUS MONCADA MD Aug 29, 2021 19:27
== END 2021-08-29 20:16 ==
LOC: WSo 17:20 → LDRP 17:20 → WSo 20:16
PROVIDERS: ATTEND Obstetrics & Gynecology
DX: O26.893 Other specified pregnancy related conditions, third trimester (principal); R10.2 Pelvic and perineal pain; Z3A.36 36 weeks gestation of pregnancy
CPT/HCPCS: 81000

== ENCOUNTER 2021-09-14 14:03 | Outpatient (CLI) | payer MEDICAID ==
[~2021-09-14] VITALS: Ht 165 cm; Wt 68.9 kg
[2021-09-14 14:50] VITALS: BP 118/70
[2021-09-14 15:32] LABS: BILIRUBIN,URINE NEGATIVE (NEGATIVE); CLARITY,URINE CLEAR; COLOR,URINE YELLOW; GLUCOSE, URINE (UA) NEGATIVE (NEGATIVE); KETONES,URINE NEGATIVE (NEGATIVE); LEUKOCYTE ESTERASE ,URINE TRACE (NEGATIVE); NITRITE,URINE NEGATIVE (NEGATIVE); PROTEIN,URINE NEGATIVE (NEGATIVE)
[2021-09-14 16:02] LABS: BACTERIA,URINE TRACE /HPF; RBC,URINE RARE /HPF; WBC,URINE 0-2 /HPF
[2021-09-14] MEDS ORDERED: ACETAMINOPHEN 500 MG TAB (TYLENOL) PO ONE (17:00)
--- NOTE | 2021-09-15 08:20 | Physician Query-Final Dx ---
Clinic Account Progress/Dx Physician Query: Please give diagnosis Please include # of weeks gestation Date of Service Sep 14, 2021 at 14:03 WHEAT,OctSep 15, 2021 08:20
== END 2021-09-14 19:35 | disposition home or self-care (01) ==
LOC: WSo 14:03 → LDRP 14:05 → WSo 19:35
PROVIDERS: ATTEND Obstetrics & Gynecology
DX: O62.9 Abnormality of forces of labor, unspecified (principal); Z3A.00 Weeks of gestation of pregnancy not specified
CPT/HCPCS: 81000; 87088; G0463; 99213

== ENCOUNTER 2021-09-16 01:40 | Inpatient (IN) | payer MEDICAID ==
[~2021-09-16] VITALS: Ht 165.1 cm; Wt 68.2 kg
[2021-09-16] VITALS (79 sets, daily range): BP systolic 63–146; BP diastolic 33–87
[2021-09-16] MEDS ORDERED: MINERAL OIL CONCENTRATE 99.9% 15 ML UDC TOP PRN (07:30)
[2021-09-16] MEDS: D5 LR IV SOLUTION 1,000 ML IV SCH ×2 (07:39→10:38)
[2021-09-16 07:54] LABS: BASOPHILS % (AUTO) 0 % (0-10); EOSINOPHILS # (AUTO) 0.1 10^3/uL (0.0-0.3); EOSINOPHILS % (AUTO) 2 % (0-10); HEMATOCRIT 35 % (35-52); LYMPHOCYTES # (AUTO) 1.7 10^3/uL (1.0-4.0); LYMPHOCYTES % (AUTO) 20 % (12-44); MEAN CORPUSCULAR HEMOGLOBIN 31 pg (25-34); MEAN CORPUSCULAR HGB CONC 34 g/dL (32-36); MEAN CORPUSCULAR VOLUME 90 fL (80-99); MEAN PLATELET VOLUME 11.7 fL (9.0-12.2); MONOCYTES # (AUTO) 0.7 10^3/uL (0.0-1.0); MONOCYTES % (AUTO) 8 % (0-12); NEUTROPHILS # (AUTO) 5.8 10^3/uL (1.8-7.8); NEUTROPHILS % (AUTO) 69 % (42-75); PLATELET COUNT 202 10^3/uL (130-400); WHITE BLOOD COUNT 8.4 10^3/uL (4.3-11.0)
[2021-09-16] MEDS ORDERED: AMOX500C2 PO (08:15)
[2021-09-16] MEDS ORDERED: fentaNYL 2 mcg/ml BUPIVA 0.125 100 ML ONE (08:41)
[2021-09-16] MEDS ORDERED: OXYTOCIN PRE-MIX DRIP 500 ML IV ONE (08:54)
[2021-09-16] MEDS ORDERED: OXYTOCIN PRE-MIX DRIP 500 ML IV SCH ×2 (09:00→18:30)
[2021-09-16] MEDS ORDERED: fentaNYL INJ 100 MCG/2 ML AMP ONE (10:02)
[2021-09-16] MEDS ORDERED: ONDANSETRON 4 MG/2 ML (SDV) Z0FRAN ONE (10:05)
[2021-09-16] MEDS ORDERED: NALOXONE 0.4 MG/ML 1 ML (NARCAN) VIAL IV PRN ×3 (10:45→18:30)
[2021-09-16] MEDS ORDERED: METOCLOPRAMIDE INJ 10 MG/2 ML (REGLAN) IV PRN (10:45)
[2021-09-16] MEDS ORDERED: EPIDURAL (fentaNYL 2 MCG/ML BUPIVA 0.125%)100 ML BAG EPI PRN (10:45)
[2021-09-16] MEDS ORDERED: diphenhydrAMINE 50 MG/ML INJ (BENADRYL) IV PRN (10:45)
[2021-09-16] MEDS ORDERED: LACTATED RINGERS 1,000 ML IV ONE (10:45)
[2021-09-16] MEDS ORDERED: ONDANSETRON 4 MG/2 ML (SDV) Z0FRAN IV PRN (10:45)
[2021-09-16] MEDS ORDERED: CATHETER FLUSH 10 ML SYR IV SCH ×2 (14:00→22:00)
--- NOTE | 2021-09-16 16:44 | History & Physical-OB ---
OB - Chief Complaint & HPI Date/Time Date of Admission: Date of Admission: Sep 16, 2021 at 06:59 Chief Complaint/History Expected Date of Delivery: Sep 22, 2021 Gestational Age in Weeks: 39 Gestational Age in Days: 1 Allergies and Home Medications Allergies Coded Allergies: No Known Drug Allergies (Unverified , 06/21/16) Patient Home Medication List Amoxicillin (Amoxicillin) 500 Mg Capsule, 500 MG PO BID, (Reported) Entered as Reported by: EH ARMANDO on 09/16/21 0815 Last Action: New Order OB - History Delivery History Hx Blood Disorders: No Adverse Rxn to Tranfusion: No Social History/Family History 2nd Hand Smoke Exposure: Yes Immunizations Influenza Vaccine Up-to-Date: No; Not Current Tetanus Booster (TDap): Unknown OB - Admission Exam Physical Exam Vitals: Vital Signs 09/16/21 09/16/21 09/16/21 11:12 14:33 15:30 Temp 36.3 Pulse 84 Resp 18 B/P (MAP) 113/67 (82) Pulse Ox 100 O2 Delivery Room Air O2 Flow Rate 15.00 Labs Laboratory Tests Test 09/16/21 07:35 Range/Units White Blood Count 8.4 4.3-11.0 10^3/uL Red Blood Count 3.93 3.80-5.11 10^6/uL Hemoglobin 12.0 11.5-16.0 g/dL Hematocrit 35 35-52 % Mean Corpuscular Volume 90 80-99 fL Mean Corpuscular Hemoglobin 31 25-34 pg Mean Corpuscular Hemoglobin Concent 34 32-36 g/dL Red Cell Distribution Width 14.3 10.0-14.5 % Platelet Count 202 130-400 10^3/uL Mean Platelet Volume 11.7 9.0-12.2 fL Immature Granulocyte % (Auto) 1 % Neutrophils (%) (Auto) 69 42-75 % Lymphocytes (%) (Auto) 20 12-44 % Monocytes (%) (Auto) 8 0-12 % Eosinophils (%) (Auto) 2 0-10 % Basophils (%) (Auto) 0 0-10 % Neutrophils # (Auto) 5.8 1.8-7.8 10^3/uL Lymphocytes # (Auto) 1.7 1.0-4.0 10^3/uL Monocytes # (Auto) 0.7 0.0-1.0 10^3/uL Eosinophils # (Auto) 0.1 0.0-0.3 10^3/uL Basophils # (Auto) 0.0 0.0-0.1 10^3/uL Immature Granulocyte # (Auto) 0.1 0.0-0.1 10^3/uL JAIME WING DO Sep 16, 2021 16:44
[2021-09-16] MEDS ORDERED: LIDOCAINE 1% INJ 20 ML 20 ML VIAL ONE (17:40)
--- NOTE | 2021-09-16 18:18 | OB Labor & Delivery Record ---
Vag Delivery Note Vag Delivery Note Date of Delivery: 09/16/21 Preoperative Diagnosis: Mary Adan is a 20 /Para 2/1 ,Gestational Age 39 weeks with advanced cervical dilation for induction of labor. Cervix has been 5-6 cm dilated for several weeks Postoperative Diagnosis: Same Surgeon: JAIME WING Anesthesia: epidural Delivery Type: vaginal Findings: Viable nale , apgars 9/9, weight pending Lacerations: none Intact placenta with 3 vessel cord. No nuchal cord, body cord. shoulder dystocia see separate note Estimated Blood Loss: 250 ml Complications: None Condition: Stable Description of Procedure: The patient is a 20 year old female who presented [for induction due to 39 weeks at 5-6 cm dilatation. She was admitted and informed consent was obtained. Her labor course was remarkable for arom and pitocin. She progressed to complete dilatation and began to push. She was then set up for delivery. The infant's head was delivered atraumatically in the ED position. The shoulders and remainder of the infant's body were then delivered with a shoulder distocia (please see separate note). Upon delivery, the head was held below the level of the perineum and the mouth and nares were bulb suctioned. The cord was doubly clamped and cut and the infant was handed off to the pediatric staff. An intact placenta with 3-vessel cord delivered via [place] and there was found to be minimal bleeding.~ Vigorous fundal massage was performed and the fundus was found to be firm. IV oxytocin was given. Examination of the vagina and perineum revealed no laceration. Following the delivery, sponge, instrument and needle counts were correct. Mom and baby were both in stable condition in the labor suite. Vitals - Labs Vital Signs - I&O Vital Signs Date Time Temp Pulse Resp B/P (MAP) Pulse Ox O2 Delivery O2 Flow Rate FiO2 09/16/21 16:30 98 18 116/58 (77) 92 Room Air 09/16/21 16:15 79 18 107/59 (75) 100 Room Air 09/16/21 16:00 76 18 112/60 (77) 100 Room Air 09/16/21 15:45 81 18 106/60 (75) 100 Room Air 09/16/21 15:30 84 18 113/67 (82) 100 Room Air 09/16/21 15:16 74 18 107/60 (76) 100 Room Air 09/16/21 15:00 76 18 114/68 (83) 100 Room Air 09/16/21 14:44 63 18 108/62 (77) Room Air 09/16/21 14:33 36.3 09/16/21 14:15 73 18 118/69 (85) 99 Room Air 09/16/21 14:00 88 18 105/66 (79) 100 Room Air 09/16/21 13:45 70 18 109/62 (78) 100 Room Air 09/16/21 13:30 63 18 114/60 (78) 100 Room Air 09/16/21 13:15 83 18 113/61 (78) 91 Room Air 09/16/21 13:00 62 18 118/66 (83) 100 Room Air 09/16/21 12:45 92 18 105/55 (72) 100 Room Air 09/16/21 12:30 76 18 118/69 (85) 100 Room Air 09/16/21 12:15 88 18 107/64 (78) 97 Room Air 09/16/21 12:00 66 18 108/63 (78) 98 Room Air 09/16/21 11:45 66 18 116/67 (83) 99 Room Air 09/16/21 11:30 72 18 115/71 (86) 100 Room Air 09/16/21 11:15 35.9 09/16/21 11:12 63 18 123/66 (85) 100 Non Rebreather 15.00 09/16/21 11:09 68 18 115/65 (82) 100 Non Rebreather 15.00 09/16/21 11:05 69 18 113/66 (82) 100 Non Rebreather 15.00 09/16/21 11:03 65 18 114/69 (84) Non Rebreather 15.00 09/16/21 11:00 66 18 114/68 (83) 100 Non Rebreather 15.00 09/16/21 10:57 65 18 116/66 (83) Non Rebreather 15.00 09/16/21 10:54 66 18 111/63 (79) 100 Non Rebreather 15.00 09/16/21 10:51 66 18 110/65 (80) 100 Non Rebreather 15.00 09/16/21 10:48 67 18 109/63 (78) Non Rebreather 15.00 09/16/21 10:45 66 18 113/64 (80) 100 Non Rebreather 15.00 09/16/21 10:42 65 18 113/65 (81) Non Rebreather 15.00 09/16/21 10:39 63 18 114/67 (83) 100 Non Rebreather 15.00 09/16/21 10:36 59 18 111/67 (82) 100 Non Rebreather 15.00 09/16/21 10:33 59 18 108/65 (79) Non Rebreather 15.00 09/16/21 10:31 50 18 103/58 (73) Non Rebreather 15.00 09/16/21 10:30 50 18 91/52 (65) Non Rebreather 15.00 09/16/21 10:29 60 18 79/45 (56) Non Rebreather 15.00 09/16/21 10:27 63 18 63/33 (43) Room Air 09/16/21 10:25 60 18 73/39 (50) 100 Room Air 09/16/21 10:21 75 18 86/51 (63) 100 Room Air 09/16/21 10:19 93 18 88/51 (63) Room Air 09/16/21 10:14 77 18 105/67 (80) 100 Room Air 09/16/21 10:11 67 18 107/61 (76) Room Air 09/16/21 10:08 70 18 108/55 (72) Room Air 09/16/21 10:07 71 18 106/57 (73) Room Air 09/16/21 10:04 70 18 72/48 (56) 99 Room Air 09/16/21 09:57 68 18 121/64 (83) 100 Room Air 09/16/21 09:53 74 18 119/78 (92) 100 Room Air 09/16/21 09:51 81 18 114/80 (91) Room Air 09/16/21 09:48 73 18 117/78 (91) 99 Room Air 09/16/21 09:45 73 18 118/79 (92) Room Air 09/16/21 09:42 78 18 125/76 (92) 100 Room Air 09/16/21 09:39 68 18 127/79 (95) 100 Room Air 09/16/21 07:40 90 18 117/73 (88) 99 Room Air Labs Laboratory Tests 09/16/21 07:35: White Blood Count 8.4, Red Blood Count 3.93, Hemoglobin 12.0, Hematocrit 35, Mean Corpuscular Volume 90, Mean Corpuscular Hemoglobin 31, Mean Corpuscular Hemoglobin Concent 34, Red Cell Distribution Width 14.3, Platelet Count 202, Mean Platelet Volume 11.7, Immature Granulocyte % (Auto) 1, Neutrophils (%) (Auto) 69, Lymphocytes (%) (Auto) 20, Monocytes (%) (Auto) 8, Eosinophils (%) (Auto) 2, Basophils (%) (Auto) 0, Neutrophils # (Auto) 5.8, Lymphocytes # (Auto) 1.7, Monocytes # (Auto) 0.7, Eosinophils # (Auto) 0.1, Basophils # (Auto) 0.0, Immature Granulocyte # (Auto) 0.1 JAIME WING DO Sep 16, 2021 18:18
--- NOTE | 2021-09-16 18:18 | OB Shoulder Dystocia Record ---
Shoulder Dystocia Note Shoulder Dystocia Start Time of Delivery of HEAD: 18:09 Time shoulder dystocia called: 18:10 HOB in lowered position: Yes Time of delivery of BODY: 18:10 Positional Maneuvers Aren, Suprapubic: Left Rotational Maneuvers Davila II Delivery Approach Delivery of posterior arm: Left shrug maneuver was also used to facilitate delivery of the left arm. JAIME WING DO Sep 16, 2021 18:18
[2021-09-16] MEDS ORDERED: MEASLES,MUMPS,RUBELLA 1 EA INJ SQ ONE (18:30)
[2021-09-16] MEDS ORDERED: DIBUCAINE 1% OINTMENT 30 GM TUBE TOP PRN (18:30)
[2021-09-16] MEDS ORDERED: BENZOCAINE/MENTHOL (DERMOPLAST) 56 ML CAN TP PRN (18:30)
[2021-09-16] MEDS ORDERED: WITCH HAZEL(TUCKS) 40 EA JAR TOP PRN (18:30)
[2021-09-16] MEDS ORDERED: TETANUS,DIPTH,PERTUSS P/F (BOOSTRIX) 0.5 ML VIAL IM ONE (18:30)
[2021-09-16] MEDS: DOCUSATE SODIUM 100 MG (COLACE) CAP PO SCH (20:57)
[2021-09-16] MEDS: ACETAMINOPHEN 500 MG TAB (TYLENOL) PO SCH (20:58)
[2021-09-16] MEDS: IBUPROFEN 600 MG (MOTRIN) TAB PO SCH (20:58)
[2021-09-17] MEDS: IBUPROFEN 600 MG (MOTRIN) TAB PO SCH ×3 (02:42→16:30)
[2021-09-17 04:00] VITALS: BP 112/63
[2021-09-17 06:36] LABS: BASOPHILS % (AUTO) 0 % (0-10); EOSINOPHILS # (AUTO) 0.1 10^3/uL (0.0-0.3); EOSINOPHILS % (AUTO) 1 % (0-10); HEMATOCRIT 31 % (35-52); HEMOGLOBIN 10.1 g/dL (11.5-16.0); LYMPHOCYTES # (AUTO) 1.8 10^3/uL (1.0-4.0); LYMPHOCYTES % (AUTO) 19 % (12-44); MEAN CORPUSCULAR HEMOGLOBIN 29 pg (25-34); MEAN CORPUSCULAR HGB CONC 33 g/dL (32-36); MEAN CORPUSCULAR VOLUME 90 fL (80-99); MEAN PLATELET VOLUME 11.8 fL (9.0-12.2); MONOCYTES # (AUTO) 0.6 10^3/uL (0.0-1.0); MONOCYTES % (AUTO) 7 % (0-12); NEUTROPHILS % (AUTO) 73 % (42-75); PLATELET COUNT 166 10^3/uL (130-400); WHITE BLOOD COUNT 9.6 10^3/uL (4.3-11.0)
[2021-09-17] MEDS: ACETAMINOPHEN 500 MG TAB (TYLENOL) PO SCH ×2 (06:37→16:30)
[2021-09-17 09:03] VITALS: BP 119/70
[2021-09-17] MEDS: FERROUS SULF 325 MG (IRON) TAB PO SCH (09:07)
[2021-09-17] MEDS: DOCUSATE SODIUM 100 MG (COLACE) CAP PO SCH (09:07)
[2021-09-17] MEDS: PRENATAL VITAMIN 1 EA TAB PO SCH (09:07)
--- NOTE | 2021-09-17 09:37 | Postpartum Progress Note ---
Note Note Day # 1 Subjective: Patient is without complaints. Ambulating, voiding. Tolerating a regular diet without nausea or vomiting. Normal lochia. Pain is well controlled with oral pain medications. Objective: Physical Exam: General - Alert and oriented, no apparent distress Abdomen - Soft, appropriately tender to palpation, non-distended, fundus firm at umbilicus Extremities - no edema, negative Kaila's bilaterally Assessment: Post- day # 1, status post vaginal delivery. Recovering well, hemodynamically stable Acute blood loss anemia Plan: Routine care. Encourage breast feeding. Encourage ambulation. Ferrous sulfate supplementation. Plan for discharge this evening or tomorrow morning, pending baby's DC Vitals - Labs Vital Signs - I&O Vital Signs Date Time Temp Pulse Resp B/P (MAP) Pulse Ox O2 Delivery O2 Flow Rate FiO2 09/17/21 09:03 36.6 66 16 119/70 (86) 98 Room Air 09/17/21 04:00 36.1 50 18 112/63 (79) 98 Room Air 09/16/21 23:20 36.0 59 18 117/61 (79) 98 Room Air 09/16/21 20:47 36.8 91 18 118/65 (82) Room Air 09/16/21 20:21 36.5 81 18 117/66 (83) Room Air 09/16/21 19:51 88 18 119/79 (92) Room Air 09/16/21 19:39 36.3 93 18 126/60 (82) Room Air 09/16/21 19:24 78 18 131/60 (83) Room Air 09/16/21 19:09 73 18 113/60 (77) Room Air 09/16/21 18:54 80 18 121/66 (84) Room Air 09/16/21 18:38 36.4 75 18 124/64 (84) Room Air 09/16/21 18:32 84 18 139/78 (98) Room Air 09/16/21 18:26 94 18 124/69 (87) Room Air 09/16/21 18:20 93 18 113/57 (75) Room Air 09/16/21 18:15 36.2 89 18 146/58 (87) Room Air 09/16/21 18:11 141 18 121/76 (91) Room Air 12/8/21 18:00 70 18 121/62 (81) Room Air 09/16/21 17:48 106 18 135/87 (103) 98 Room Air 09/16/21 17:30 65 18 116/81 (93) 100 Room Air 09/16/21 17:15 74 18 114/75 (88) 100 Room Air 09/16/21 17:00 76 18 115/76 (89) 94 Room Air 09/16/21 16:56 77 18 116/75 (89) 100 Room Air 09/16/21 16:53 61 18 113/65 (81) 100 Room Air 09/16/21 16:50 59 18 111/64 (80) 100 Room Air 09/16/21 16:47 55 18 116/65 (82) Room Air 09/16/21 16:44 59 18 115/70 (85) 100 Room Air 09/16/21 16:41 58 18 108/64 (79) 100 Room Air 09/16/21 16:38 36.5 09/16/21 16:30 98 18 116/58 (77) 92 Room Air 09/16/21 16:15 79 18 107/59 (75) 100 Room Air 09/16/21 16:00 76 18 112/60 (77) 100 Room Air 09/16/21 15:45 81 18 106/60 (75) 100 Room Air 09/16/21 15:30 84 18 113/67 (82) 100 Room Air 09/16/21 15:16 74 18 107/60 (76) 100 Room Air 09/16/21 15:00 76 18 114/68 (83) 100 Room Air 09/16/21 14:44 63 18 108/62 (77) Room Air 09/16/21 14:33 36.3 09/16/21 14:15 73 18 118/69 (85) 99 Room Air 09/16/21 14:00 88 18 105/66 (79) 100 Room Air 09/16/21 13:45 70 18 109/62 (78) 100 Room Air 09/16/21 13:30 63 18 114/60 (78) 100 Room Air 09/16/21 13:15 83 18 113/61 (78) 91 Room Air 09/16/21 13:00 62 18 118/66 (83) 100 Room Air 09/16/21 12:45 92 18 105/55 (72) 100 Room Air 09/16/21 12:30 76 18 118/69 (85) 100 Room Air 09/16/21 12:15 88 18 107/64 (78) 97 Room Air 09/16/21 12:00 66 18 108/63 (78) 98 Room Air 09/16/21 11:45 66 18 116/67 (83) 99 Room Air 09/16/21 11:30 72 18 115/71 (86) 100 Room Air 09/16/21 11:15 35.9 09/16/21 11:12 63 18 123/66 (85) 100 Non Rebreather 15.00 09/16/21 11:09 68 18 115/65 (82) 100 Non Rebreather 15.00 09/16/21 11:05 69 18 113/66 (82) 100 Non Rebreather 15.00 09/16/21 11:03 65 18 114/69 (84) Non Rebreather 15.00 09/16/21 11:00 66 18 114/68 (83) 100 Non Rebreather 15.00 09/16/21 10:57 65 18 116/66 (83) Non Rebreather 15.00 09/16/21 10:54 66 18 111/63 (79) 100 Non Rebreather 15.00 09/16/21 10:51 66 18 110/65 (80) 100 Non Rebreather 15.00 09/16/21 10:48 67 18 109/63 (78) Non Rebreather 15.00 09/16/21 10:45 66 18 113/64 (80) 100 Non Rebreather 15.00 09/16/21 10:42 65 18 113/65 (81) Non Rebreather 15.00 09/16/21 10:39 63 18 114/67 (83) 100 Non Rebreather 15.00 09/16/21 10:36 59 18 111/67 (82) 100 Non Rebreather 15.00 09/16/21 10:33 59 18 108/65 (79) Non Rebreather 15.00 09/16/21 10:31 50 18 103/58 (73) Non Rebreather 15.00 09/16/21 10:30 50 18 91/52 (65) Non Rebreather 15.00 09/16/21 10:29 60 18 79/45 (56) Non Rebreather 15.00 09/16/21 10:27 63 18 63/33 (43) Room Air 09/16/21 10:25 60 18 73/39 (50) 100 Room Air 09/16/21 10:21 75 18 86/51 (63) 100 Room Air 09/16/21 10:19 93 18 88/51 (63) Room Air 09/16/21 10:14 77 18 105/67 (80) 100 Room Air 09/16/21 10:11 67 18 107/61 (76) Room Air 09/16/21 10:08 70 18 108/55 (72) Room Air 09/16/21 10:07 71 18 106/57 (73) Room Air 09/16/21 10:04 70 18 72/48 (56) 99 Room Air 09/16/21 09:57 68 18 121/64 (83) 100 Room Air 09/16/21 09:53 74 18 119/78 (92) 100 Room Air 09/16/21 09:51 81 18 114/80 (91) Room Air 09/16/21 09:48 73 18 117/78 (91) 99 Room Air 09/16/21 09:45 73 18 118/79 (92) Room Air 09/16/21 09:42 78 18 125/76 (92) 100 Room Air 09/16/21 09:39 68 18 127/79 (95) 100 Room Air I & O 09/17/21 07:00 Intake Total 2500 ml Balance 2500 ml Labs Laboratory Tests 09/17/21 06:06: White Blood Count 9.6, Red Blood Count 3.44L, Hemoglobin 10.1L, Hematocrit 31L, Mean Corpuscular Volume 90, Mean Corpuscular Hemoglobin 29, Mean Corpuscular Hemoglobin Concent 33, Red Cell Distribution Width 14.3, Platelet Count 166, Mean Platelet Volume 11.8, Immature Granulocyte % (Auto) 1, Neutrophils (%) (Auto) 73, Lymphocytes (%) (Auto) 19, Monocytes (%) (Auto) 7, Eosinophils (%) (Auto) 1, Basophils (%) (Auto) 0, Neutrophils # (Auto) 7.0, Lymphocytes # (Auto) 1.8, Monocytes # (Auto) 0.6, Eosinophils # (Auto) 0.1, Basophils # (Auto) 0.0, Immature Granulocyte # (Auto) 0.1 MALICK PATEL APRN Sep 17, 2021 09:37
[2021-09-17 13:59] VITALS: BP 115/75
[2021-09-17] MEDS ORDERED: FERR325T24 PO (14:28)
[2021-09-17] MEDS ORDERED: BENZ78AE5 TP (14:28)
[2021-09-17] MEDS ORDERED: IBUP-844 PO (14:28)
[2021-09-17] MEDS ORDERED: DOCU100C37 PO (14:28)
[2021-09-17] MEDS ORDERED: DIBU30OI TOP (14:28)
--- NOTE | 2021-09-17 14:29 | Discharge Inst-Women's Service ---
Discharge Inst-Women's Serv Depart Medication/Instructions New, Converted or Re-Newed RX: Transmitted to Pharmacy Problems Reviewed?: Yes Consults/Follow Up Additional Follow Up: Yes Orders/Referrals 6wk appt Activity Activity: Activity as Tolerated Driving Instructions: No Driving for 1 Week NO SMOKING: NO SMOKING Nothing Inside Vagina: No Douching, No [place], No Tampons Diet Discharge Diet: No Restrictions Symptoms to Report to : Bleeding Excessive, Pain Increased, Fever Over 101 Degrees F, Vaginal Bleeding Increase For Any Problems or Questions: Contact Your Physician MALICK PATEL APRN Sep 17, 2021 14:29
--- NOTE | 2021-09-17 15:02 | Anesthesia-Regional Post-Op ---
Regional Patient Condition Mental Status: Alert, Oriented x3 Circulation: Same as Pre-Op Headache: Absent Sensation: Full Recovery Motor Block: Absent Post Op Complications Complications None Follow Up Care/Instructions Patient Instructions None needed. Anesthesia/Patient Condition Patient is doing well, no complaints, stable vital signs, no apparent adverse anesthesia problems. No complications reported per nursing. NURIA HAN CRNA Sep 17, 2021 15:01
[2021-09-17 19:30] VITALS: BP 122/78
[2021-09-18] MEDS: IBUPROFEN 600 MG (MOTRIN) TAB PO SCH ×4 (00:49→14:41)
[2021-09-18 00:59] VITALS: BP 116/60
[2021-09-18] MEDS: ACETAMINOPHEN 500 MG TAB (TYLENOL) PO SCH ×2 (00:59→08:21)
[2021-09-18] MEDS: DOCUSATE SODIUM 100 MG (COLACE) CAP PO SCH ×2 (00:59→08:21)
[2021-09-18 02:30] VITALS: BP 119/72
[2021-09-18] MEDS ORDERED: diphenhydrAMINE 25 MG TAB (BENADRYL) PO ONE (07:15)
[2021-09-18] MEDS: PRENATAL VITAMIN 1 EA TAB PO SCH (08:21)
[2021-09-18] MEDS: FERROUS SULF 325 MG (IRON) TAB PO SCH (08:21)
[2021-09-18 08:23] VITALS: BP 116/73
--- NOTE | 2021-09-18 08:55 | Postpartum Progress Note ---
Note Note Day # 2 s/p DC held last night due to hyperbilirubinemia. Had possible reaction to MMR, red itchy arm after injection. Benedryl ordered, but did not require this. Improved spontaneously Subjective: Patient is without complaints. Ambulating, voiding. Tolerating a regular diet without nausea or vomiting. Normal lochia. Pain is well controlled with oral pain medications. Objective: 09/18/21 09/18/21 00:59 08:23 Temp 36.3 36.3 Pulse 75 62 Resp 16 16 B/P (MAP) 116/60 (78) 116/73 (87) Pulse Ox 99 98 O2 Delivery Room Air Room Air Physical Exam: General - Alert and oriented, no apparent distress Abdomen - Soft, appropriately tender to palpation, non-distended, fundus firm at umbilicus Extremities - no edema, negative Kaila's bilaterally Assessment: 1. post- day # 2, status post spont vaginal delivery. Recovering well, hemodynamically stable Plan: Routine care. Encourage breast feeding. Encourage ambulation. Ferrous sulfate supplementation. Plan for discharge today Vitals - Labs Vital Signs - I&O Vital Signs Date Time Temp Pulse Resp B/P (MAP) Pulse Ox O2 Delivery O2 Flow Rate FiO2 09/18/21 08:23 36.3 62 16 116/73 (87) 98 Room Air 09/18/21 00:59 36.3 75 16 116/60 (78) 99 Room Air 09/17/21 19:30 36.6 78 18 122/78 (93) 99 Room Air 09/17/21 13:59 36.6 77 16 115/75 (88) 99 Room Air 09/17/21 09:03 36.6 66 16 119/70 (86) 98 Room Air JAIME WING DO Sep 18, 2021 08:55
--- NOTE | 2021-09-18 08:55 | Short Stay Summary ---
Discharge Summary Hospital Course Hospital Course Date of Admission: Sep 16, 2021 at 06:59 Admission Diagnosis : Family Physician/Provider: Manav Valencia Date of Discharge: 09/18/21 Discharge Diagnosis: [ ] Hospital Course: [ ] Labs and Pending Lab Test: Home Meds Active Dibucaine 30 Gm Oint 0 Gm TOP UD PRN Dermoplast Pain Relieving [place] (Benzocaine/Menthol) 78 Gm Aerosol 0 Ea TP UD PRN Docusate Sodium 100 Mg Capsule 100 Mg PO BID Ibu (Ibuprofen) 600 Mg Tablet 600 Mg PO Q6H Ferosul (Ferrous Sulfate) 325 Mg Tablet 325 Mg PO DAILY Reported Amoxicillin 500 Mg Capsule 500 Mg PO BID Discharge Instructions Discharge Diet: No Restrictions Discharge Physical Examination Allergies: Coded Allergies: No Known Drug Allergies (Unverified , 06/21/16) Discharge Summary Date of Admission Sep 16, 2021 at 06:59 Date of Discharge JAIME WING DO Sep 18, 2021 08:55
[2021-09-18 14:30] VITALS: BP 119/72
== END 2021-09-18 15:20 | disposition home or self-care (01) | DRG 806 ==
LOC: LDRP 06:59
PROVIDERS: ADMIT Obstetrics & Gynecology; ATTEND Obstetrics & Gynecology
PROC: 10E0XZZ Delivery of Products of Conception, External Approach (ICD-10-PCS; principal; 2021-09-16)
DX: O66.0 Obstructed labor due to shoulder dystocia (principal); D62 Acute posthemorrhagic anemia; Z37.0 Single live birth; Z3A.39 39 weeks gestation of pregnancy; O90.81 Anemia of the puerperium
CPT/HCPCS: 36415; 85025; 86850; 86900; 86901; 90707

== ENCOUNTER 2022-07-10 13:01 | Emergency (ER) | payer MEDICAID ==
[~2022-07-10] VITALS: Ht 165 cm; Wt 54.0 kg
[~2022-07-10 13:01] MED LIST changes: +AMOX500C2 PO; +BENZ78AE5 TP; +DIBU30OI TOP; +DOCU100C37 PO; +FERR325T24 PO
[2022-07-10 13:08] VITALS: BP 131/83
--- NOTE | 2022-07-10 13:32 | ED Integumentary General ---
General Chief Complaint: Laceration Stated Complaint: FALL/FOREHEAD LAC Nursing Triage Note: Pt here after tripping over a toy and landing on a metal piece of a door frame causing an injury to her forehead; pt denies LOC. Pt is A&Ox 4 with GCS of 15. Source: patient Exam Limitations: no limitations History of Present Illness Date Seen by Provider: Jul 10, 2022 Time Seen by Provider: 13:06 Initial Comments Patient is a 21-year-old female who presents to the emergency department today with a chief complaint of left forehead laceration/contusion. She was walking in her home, tripped over her one of her 's toys and her forehead went into a door jam. She states she did not have a loss of consciousness. She has mild discomfort at the area. No nausea vomiting, vision change. She states her eyebrow area is "numb". She denies any neck pain. No numbness weakness or tingling to any of her extremities. No other complaints of injury. Last tetanus shot within the last 9 months. She is not on blood thinners. She denies feeling unsafe at home and denies that this was as a result of an assault. All other review of systems reviewed and negative except as stated. Timing/Duration: this afternoon (Approximately 1:00) Location: face Possible Cause: other (Tripped and fell) Allergies and Home Medications Allergies Coded Allergies: No Known Drug Allergies (Unverified , 06/21/16) Patient Home Medication List Home Medication List Reviewed: Yes Amoxicillin (Amoxicillin) 500 Mg Capsule, 500 MG PO BID, (Reported) Entered as Reported by: EH ARMANDO on 09/16/21 0815 Benzocaine/Menthol (Dermoplast Pain Relieving [place]) 78 Gm Aerosol, 0 EA TP UD PRN for PAIN- SEE INSTRUCTIONS Prescribed by: MALICK PATEL on 09/17/21 1428 Dibucaine (Dibucaine) 30 Gm Oint, 0 GM TOP UD PRN for PAIN- SEE INSTRUCTIONS Prescribed by: MALICK PATEL on 09/17/21 142 Docusate Sodium (Docusate Sodium) 100 Mg Capsule, 100 MG PO BID Prescribed by: MALICK PATEL on 09/17/21 142 Ferrous Sulfate (Ferosul) 325 Mg Tablet, 325 MG PO DAILY Prescribed by: MALICK PATEL on 09/17/21 142 Ibuprofen (Ibu) 600 Mg Tablet, 600 MG PO Q6H Prescribed by: MALICK PATEL on 09/17/21 1428 Review of Systems Review of Systems Constitutional: see HPI EENTM: no symptoms reported Respiratory: no symptoms reported Cardiovascular: no symptoms reported Gastrointestinal: no symptoms reported Genitourinary: no symptoms reported Musculoskeletal: no symptoms reported Skin: other (Laceration) Past Qscqblh-Jadlfx-Hfegbr Hx Patient Social History Smoking Status: Current Everyday Smoker Substance use?: No Alcohol Use?: No Immunizations Up To Date Tetanus Booster (TDap): Unknown PED Vaccines UTD: Yes Seasonal Allergies Seasonal Allergies: No Past Medical History Surgeries: No Respiratory: Yes Asthma Cardiac: No Neurological: No Last Menstrual Period: Jun 30, 2022 Reproductive Disorders: No Genitourinary: No Gastrointestinal: No Musculoskeletal: No Endocrine: No HEENT: No Cancer: No Psychosocial: Yes Anxiety, Depression Integumentary: No Blood Disorders: No Adverse Reaction/Blood Tranf: No Family Medical History Seizure disorder 19 MOTHER Physical Exam Vital Signs Vital Signs - First Documented 07/10/22 13:08 Temp 37.2 Pulse 96 Resp 16 B/P (MAP) 131/83 (99) Pulse Ox 100 O2 Delivery Room Air Capillary Refill : Less Than 3 Seconds General Appearance: WD/WN, no apparent distress HEENT: PERRL/EOMI, normal ENT inspection, TMs normal, pharynx normal Neck: non-tender, full range of motion, supple, normal inspection Cardiovascular: regular rate, rhythm Respiratory: lungs clear, normal breath sounds, no respiratory distress, no accessory muscle use Gastrointestinal: non tender, soft Extremities: normal range of motion, normal inspection, normal capillary refill 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 Laceration is quite deep extending through subcutaneous tissues. No active bleeding. Slightly irregular margins. No obvious foreign body) Progress/Results/Core Measures Results/Orders Vital Signs/I&O 07/10/22 13:08 Temp 37.2 Pulse 96 Resp 16 B/P (MAP) 131/83 (99) Pulse Ox 100 O2 Delivery Room Air Blood Pressure Mean: 99 Progress Progress Note : Time: 13:29 Progress Note After discussion about repair techniques I offered the patient local anesthesia with suturing. She adamantly declined and states that she is deathly afraid of needles and shots. I advised her that there was an increased risk of infection and poor wound healing/scar. She again adamantly declined sutures. I did offer to clean the wound and apply some tissue adhesive. This is much more appealing to her. I cleaned the wound thoroughly, irrigated, closed with skin affix. Wound margins approximated fairly well. No active bleeding after closure. Patient is counseled on wound care and to not apply any triple antibiotic ointment/Neosporin over the glue. Head injury precautions provided as well. Departure Impression Primary Impression: Minor head injury Qualified Codes: S09.90XA - Unspecified injury of head, initial encounter Additional Impression: Facial laceration Qualified Codes: S01.81XA - Laceration without foreign body of other part of head, initial encounter Disposition: HOME, SELF-CARE Condition: Stable Departure-Patient Inst. Decision time for Depature: 13:30 Referrals: THAIS KEEN (PCP/Family) Primary Care Physician Patient Instructions: Minor Head Injury, Adult ED, Laceration Repair With Glue ED Add. Discharge Instructions: Keep the area clean and dry. You do not need to put a bandage over the glue. Do not put any triple antibiotic ointment or Neosporin over the glue as it will remove the glue from the wound and the wound will open, increasing the risk for infection and worsening scar. The glue will come off on its own over the course of approximately 10 days to 2 weeks. If you notice swelling at the area with increasing redness or drainage of pus under the glue, increasing pain or fever please come back to the emergency room for reevaluation. Monitor yourself for worsening headache, nausea vomiting, if you have these develop please come back to the emergency room for reevaluation. Work/School Note: Work Release Form Date Seen in the Emergency Department: Jul 10, 2022 Return to Work: Jul 11, 2022 JYOTSNA GUNDERSON MD Jul 10, 2022 13:32
== END 2022-07-10 13:49 | disposition home or self-care (01) ==
LOC: EDUNIT# 13:01 → ER 13:03
DX: S09.90XA Unspecified injury of head, initial encounter (principal); S01.81XA Laceration without foreign body of other part of head, initial encounter; F17.210 Nicotine dependence, cigarettes, uncomplicated; Z28.310 Unvaccinated for COVID-19; W01.0XXA Fall on same level from slipping, tripping and stumbling without subsequent striking against object, initial encounter; Y93.01 Activity, walking, marching and hiking; Y92.009 Unspecified place in unspecified non-institutional (private) residence as the place of occurrence of the external cause

== ENCOUNTER 2022-10-02 17:57 | Emergency (ER) | payer MEDICAID ==
[~2022-10-02] VITALS: Ht 165.1 cm; Wt 54.4 kg
[2022-10-02 18:05] VITALS: BP 104/80
--- NOTE | 2022-10-02 18:15 | ED GU-Female ---
General Stated Complaint: WANTS CHECKED FOR STD Source: patient Exam Limitations: no limitations (WILMER CAAL APRN) History of Present Illness Date Seen by Provider: Oct 02, 2022 Time Seen by Provider: 18:10 Initial Comments 22 y/o female presents this evening requesting testing for chlamydia, gonorrhea, and trichomonas. Pt states she "heard through [employer]" that she needs to get checked because she probably has STI. Pt uncertain what she was exposed to. Had negative HIV test this week. She denies having any symptoms at this time and denies h/o STI. Severity/Quality: other (Denies symptoms) Radiation: none Activities at Onset: none Prior Genitourinary Problems: none Sexual [place] History: multiple partners Associated Symptoms: denies symptoms (WILMER CAAL APRN) Allergies and Home Medications Allergies Coded Allergies: No Known Drug Allergies (Unverified , 06/21/16) Patient Home Medication List Home Medication List Reviewed: Yes (WILMER CAAL APRN) Amoxicillin (Amoxicillin) 500 Mg Capsule, 500 MG PO BID, (Reported) Entered as Reported by: EH ARMANDO on 09/16/21 0815 Benzocaine/Menthol (Dermoplast Pain Relieving [place]) 78 Gm Aerosol, 0 EA TP UD PRN for PAIN- SEE INSTRUCTIONS Prescribed by: MALICK PATEL on 09/17/21 1428 Dibucaine (Dibucaine) 30 Gm Oint, 0 GM TOP UD PRN for PAIN- SEE INSTRUCTIONS Prescribed by: MALICK PATEL on 09/17/21 142 Docusate Sodium (Docusate Sodium) 100 Mg Capsule, 100 MG PO BID Prescribed by: MALIKC PATEL on 09/17/21 142 Ferrous Sulfate (Ferosul) 325 Mg Tablet, 325 MG PO DAILY Prescribed by: MALICK PATEL on 09/17/21 142 Ibuprofen (Ibu) 600 Mg Tablet, 600 MG PO Q6H Prescribed by: MALICK PATEL on 09/17/21 1428 Review of Systems Review of Systems Constitutional: no symptoms reported EENTM: see HPI Respiratory: no symptoms reported Cardiovascular: no symptoms reported Gastrointestinal: no symptoms reported Genitourinary: no symptoms reported Musculoskeletal: no symptoms reported Skin: no symptoms reported (WILMER CAAL APRN) Past Ltzqjld-Lsrfob-Okqvlq Hx Patient Social History Tobacco Use?: Yes Tobacco type used: Cigarettes Smoking Status: Current Everyday Smoker Substance use?: No Alcohol Use?: Yes Alcohol Frequency: Once in a while (WILMER CAAL APRN) Immunizations Up To Date Tetanus Booster (TDap): Unknown PED Vaccines UTD: Yes (WILMER CAAL APRN) Seasonal Allergies Seasonal Allergies: No (WILMER CAAL APRN) Past Medical History Surgeries: No Respiratory: Yes Asthma Cardiac: No Neurological: No Reproductive Disorders: No Genitourinary: No Gastrointestinal: No Musculoskeletal: No Endocrine: No HEENT: No Cancer: No Psychosocial: Yes Anxiety, Depression Integumentary: No Blood Disorders: No Adverse Reaction/Blood Tranf: No (WILMER CAAL APRN) Family Medical History Seizure disorder 19 MOTHER Physical Exam Vital Signs Vital Signs - First Documented 10/02/22 10/02/22 18:05 18:45 Temp 37.2 Pulse 115 Resp 18 B/P (MAP) 104/80 (88) Pulse Ox 100 O2 Delivery Room Air (KAREEM,KATHLEEN K DO) Vital Signs Capillary Refill : (WILMER CAAL APRN) Height, Weight, BMI Height: 5'5" Weight: 130lbs. oz. 58.458536rc; 19.00 BMI Method:Stated General Appearance: WD/WN, no apparent distress HEENT: pharynx normal Gastrointestinal: normal bowel sounds, non tender, soft Neurologic/Psychiatric: normal mood/affect Skin: normal color, warm/dry (WILMER CAAL APRN) Progress/Results/Core Measures Suspected Sepsis SIRS Temperature: Pulse: Respiratory Rate: Blood Pressure / Mean: (WILMER CAAL APRN) Results/Orders Vital Signs/I&O Capillary Refill : (WILMER CAAL APRN) Progress Note : Progress Note Pt self-swabbed, she declines rocephin and azithromycin treatment today, she desires to wait for results before being treated for anything. (WILMER CAAL APRN) Departure Impression Primary Impression: Sexual behavior with high risk of exposure to communicable disease Disposition: HOME, SELF-CARE Condition: Stable Departure-Patient Inst. Decision time for Depature: 18:27 (WILMER CAAL APRN) Referrals: THAIS KEEN (PCP/Family) Primary Care Physician Patient Instructions: Preventing the Spread of an Infectious Disease, Sexually Transmitted Diseases ED Add. Discharge Instructions: Abstain from intercourse until you have received all of your test results. Always use condoms to reduce risk of transmission of STDs. Follow up with any new/worsening concerns ATTENDING PHYSICIAN NOTE: I WAS PHYSICALLY PRESENT ER PHYSICIAN, BUT I WAS NOT INVOLVED IN ANY DECISION MAKING OR ANY CARE OF THIS PATIENT AND I AM NOT COLLABORATING PHYSICIAN. (KATHLEEN SERNA DO) WILMER CAAL APRN Oct 02, 2022 18:15 KATHLEEN SERNA DO Oct 06, 2022 05:39
== END 2022-10-02 18:45 | disposition home or self-care (01) ==
LOC: EDUNIT# 17:57 → ER 17:58
DX: Z20.2 Contact with and (suspected) exposure to infections with a predominantly sexual mode of transmission (principal); Z72.51 High risk heterosexual behavior; F17.210 Nicotine dependence, cigarettes, uncomplicated; Z28.310 Unvaccinated for COVID-19
CPT/HCPCS: 36415; 87210; 87491; 87591

== ENCOUNTER 2022-10-14 06:30 | Emergency (ER) | payer MEDICAID ==
[~2022-10-14] VITALS: Ht 165.1 cm; Wt 54.4 kg
[2022-10-14] MEDS ORDERED: ORPHENADRINE 60 MG/2 ML (NORFLEX) AMP (ED ONLY) IM STA (06:39)
[2022-10-14] MEDS ORDERED: KETOROLAC 30 MG/ML VIAL IM STA (06:39)
--- NOTE | 2022-10-14 06:39 | ED Back Pain ---
General Stated Complaint: LOWER BACK PAIN History of Present Illness Date Seen by Provider: Oct 14, 2022 Time Seen by Provider: 06:36 Initial Comments 22-year-old female presents with right sided back pain. She reports it goes from her low back up to her upper back. She has a history of scoliosis. She denies any new injuries. She reports been going on 3 to 4 days. No numbness, tingling, loss of bowel or bladder. Allergies and Home Medications Allergies Coded Allergies: No Known Drug Allergies (Unverified , 06/21/16) Patient Home Medication List Home Medication List Reviewed: Yes Amoxicillin (Amoxicillin) 500 Mg Capsule, 500 MG PO BID, (Reported) Entered as Reported by: EH ARMANDO on 09/16/21 0815 Benzocaine/Menthol (Dermoplast Pain Relieving [place]) 78 Gm Aerosol, 0 EA TP UD PRN for PAIN- SEE INSTRUCTIONS Prescribed by: MALICK PATEL on 09/17/21 1428 Dibucaine (Dibucaine) 30 Gm Oint, 0 GM TOP UD PRN for PAIN- SEE INSTRUCTIONS Prescribed by: MALICK PATEL on 09/17/21 142 Docusate Sodium (Docusate Sodium) 100 Mg Capsule, 100 MG PO BID Prescribed by: MALICK PATEL on 09/17/21 142 Ferrous Sulfate (Ferosul) 325 Mg Tablet, 325 MG PO DAILY Prescribed by: MALICK PATEL on 09/17/21 142 Ibuprofen (Ibu) 600 Mg Tablet, 600 MG PO Q6H Prescribed by: MALICK PATEL on 09/17/21 142 Sulfamethoxazole/Trimethoprim (Bactrim Ds Tablet) 1 Each Tablet, 1 EACH PO BID Prescribed by: MATTHEW LOZADA on 10/14/22 0816 Review of Systems Constitutional: No chills, No fever EENTM: no symptoms reported Respiratory: no symptoms reported Cardiovascular: no symptoms reported Gastrointestinal: no symptoms reported Genitourinary: no symptoms reported Musculoskeletal: back pain Skin: no symptoms reported Psychiatric/Neurological: No Symptoms Reported Past Eukefyb-Quxyhd-Gbhbhq Hx Immunizations Up To Date Tetanus Booster (TDap): Unknown PED Vaccines UTD: Yes Seasonal Allergies Seasonal Allergies: No Past Medical History Surgeries: No Respiratory: Yes Asthma Cardiac: No Neurological: No Reproductive Disorders: No Genitourinary: No Gastrointestinal: No Musculoskeletal: No Endocrine: No HEENT: No Cancer: No Psychosocial: Yes Anxiety, Depression Integumentary: No Blood Disorders: No Adverse Reaction/Blood Tranf: No Family Medical History Seizure disorder 19 MOTHER Physical Exam Vital Signs Vital Signs - First Documented 10/14/22 06:31 Temp 37.0 Pulse 120 Resp 20 B/P (MAP) 116/81 (93) Pulse Ox 100 O2 Delivery Room Air Capillary Refill : Height, Weight, BMI Height: 5'5" Weight: 130lbs. oz. 58.558733al; 19.00 BMI Method:Stated General Appearance: No Apparent Distress, Thin HEENT: Moist Mucous Membranes Neck: Non Tender, Supple Cardiovascular: Regular Rate, Rhythm, No Edema Respiratory: Lungs Clear, Normal Breath Sounds Back: No CVA Tenderness (L), No CVA Tenderness (R), No Vertebral Tenderness; Other (tenderness, right upper and lower back ) Extremity: Normal Capillary Refill, Normal Inspection, Non Tender Neurologic/Psychiatric: Alert, Oriented x3 Skin: Normal Color, Warm/Dry Progress/Results/Core Measures Results/Orders Lab Results Laboratory Tests Test 10/14/22 07:35 Range/Units Urine Color YELLOW Urine Clarity CLEAR Urine pH 6.0 5-9 Urine Specific [place] 1.025 H 1.016-1.022 Urine Protein 1+ H NEGATIVE Urine Glucose (UA) NEGATIVE NEGATIVE Urine Ketones NEGATIVE NEGATIVE Urine Nitrite POSITIVE H NEGATIVE Urine Bilirubin NEGATIVE NEGATIVE Urine Urobilinogen 1.0 < = 1.0 MG/DL Urine Leukocyte Esterase 3+ H NEGATIVE Urine RBC (Auto) TRACE-I H NEGATIVE Urine RBC 2-5 H /HPF Urine WBC 50-100 H /HPF Urine Squamous Epithelial Cells 2-5 /HPF Urine Crystals NONE /LPF Urine Bacteria LARGE H /HPF Urine Casts NONE /LPF Urine Mucus NEGATIVE /LPF Urine Culture Indicated YES My Orders Orders - MATTHEW LOZADA L DO Thoracic Spine, 2 Views Only (10/14/22 06:39) Lumbar Spine - 2-3 Views (10/14/22 06:39) Ketorolac Injection (Toradol Injection) (10/14/22 06:39) Orphenadrine Inj (Ed Only) (Norflex Inje (10/14/22 06:39) Ua Culture If Indicated (10/14/22 06:39) Hcg,Qualitative Urine (10/14/22 07:18) Urine Culture (10/14/22 07:35) Vital Signs/I&O 10/14/22 06:31 Temp 37.0 Pulse 120 Resp 20 B/P (MAP) 116/81 (93) Pulse Ox 100 O2 Delivery Room Air Progress Progress Note : Progress Note Patient with a significant urinary tract infection likely the cause of her worsening back pain on top of her chronic back pain. Patient to be treated with Bactrim. She can use Tylenol or ibuprofen as needed for pain along with topical lidocaine. Patient's x-rays were reviewed and showed no acute findings changes. Patient also potential mild musculoskeletal spasm. I will provide her with muscle relaxant for couple days. If she needs stronger pain medication I recommend she follow-up with her primary care provider. patient was stable and discharged Diagnostic Imaging Diagonstic Imaging: Xray Comments Date of Exam:10/14/22 THORACIC SPINE, 2 VIEWS ONLY Indication: Back pain Thoracic spine AP and lateral views of the thoracic spine shows normal vertebral body height and alignment. Disc spaces are normal. IMPRESSION: Negative thoracic spine. Date of Exam:10/14/22 LUMBAR SPINE - 2-3 VIEWS Indication: Low back pain Lumbar spine AP and lateral views of the lumbar spine shows normal vertebral body height and alignment. Disc spaces are normal. IMPRESSION: Negative lumbar spine. Reviewed: Reviewed by Me, Reviewed/Discussed Departure Impression Primary Impression: Acute cystitis with hematuria Additional Impression: Chronic back pain Qualified Codes: M54.50 - Low back pain, unspecified; G89.29 - Other chronic pain Disposition: 01 HOME, SELF-CARE Condition: Stable Departure-Patient Inst. Referrals: THAIS KEEN (PCP/Family) Primary Care Physician Patient Instructions: Back Muscle Strain (DC), Urinary Tract Infection, Adult ED Add. Discharge Instructions: Tylenol or ibuprofen as needed for pain. You may try topical lidocaine with menthol over your right lower back. Please drink plenty of fluids. Please follow-up with your primary care provider in 1 week to recheck your urine, sooner if symptoms or not improving. Scripts Cyclobenzaprine HCl (Cyclobenzaprine HCl) 10 Mg Tablet 10 MG PO Q8H PRN for SPASMS, #15 TAB 0 Refills Prov: LOZADA,MATTHEW L DO 10/14/22 Sulfamethoxazole/Trimethoprim (Bactrim Ds Tablet) 1 Each Tablet 1 EACH PO BID for 7 Days, #14 TAB Prov: LOZADA,MATTHEW L DO 10/14/22 MATTHEW LOZADA DO Oct 14, 2022 06:39
[2022-10-14 07:47] LABS: BILIRUBIN,URINE NEGATIVE (NEGATIVE); CLARITY,URINE CLEAR; COLOR,URINE YELLOW; GLUCOSE, URINE (UA) NEGATIVE (NEGATIVE); KETONES,URINE NEGATIVE (NEGATIVE); LEUKOCYTE ESTERASE ,URINE 3+ (NEGATIVE); NITRITE,URINE POSITIVE (NEGATIVE); PROTEIN,URINE 1+ (NEGATIVE)
[2022-10-14 08:07] LABS: WBC,URINE 50-100 /HPF
[2022-10-14 08:08] LABS: BACTERIA,URINE LARGE /HPF
[2022-10-14] MEDS ORDERED: SULF1TAB38 PO (08:16)
--- NOTE | 2022-10-14 08:30 | Diagnostic Imaging Report ---
Indication: Back pain Thoracic spine AP and lateral views of the thoracic spine shows normal vertebral body height and alignment. Disc spaces are normal. IMPRESSION: Negative thoracic spine. Dictated by: Dictated on workstation # [id number]
--- NOTE | 2022-10-14 08:30 | Diagnostic Imaging Report ---
Indication: Low back pain Lumbar spine AP and lateral views of the lumbar spine shows normal vertebral body height and alignment. Disc spaces are normal. IMPRESSION: Negative lumbar spine. Dictated by: Dictated on workstation # [id number]
[2022-10-14] MEDS ORDERED: CYCL10TA25 PO (08:40)
[2022-10-14 08:58] VITALS: BP 120/78
[2022-10-16] MEDS ORDERED: CEPH500T PO (10:37)
== END 2022-10-14 08:58 | disposition home or self-care (01) ==
LOC: EDUNIT# 06:30 → ER 06:31
DX: M54.50 Low back pain, unspecified (principal); G89.29 Other chronic pain; N30.01 Acute cystitis with hematuria; Z28.310 Unvaccinated for COVID-19
CPT/HCPCS: 72070; 72100; 81000; 84703; 87077; 87088; 87186

== ENCOUNTER 2022-10-17 19:23 | Emergency (ER) | payer MEDICAID ==
[~2022-10-17] VITALS: Ht 165 cm; Wt 56.0 kg
[~2022-10-17 19:23] MED LIST changes: +CEPH500T PO; +CYCL10TA25 PO; +SULF1TAB38 PO
--- NOTE | 2022-10-17 19:59 | ED Fever ---
History of Present Illness General Stated Complaint: FLU LIKE SYMTOMS Source: patient Exam Limitations: no limitations History of Present Illness Date Seen by Provider: Oct 17, 2022 Time Seen by Provider: 19:28 Initial Comments 22-year-old female with no pertinent past medical history coming in due to 3 days of fever, congestion, body aches, general malaise. She has had flank pain, and had a urinalysis that was positive a couple days ago that showed up E. coli. She was sent home on Bactrim which it was resistant to, then Keflex was sent, but she states that she has an allergy to that alternating ibuprofen and Tylenol. 2 of her kids are sick right now as well. Denies any chest pain, shortness of breath, nausea, vomiting, diarrhea, or any other concerns. Allergies and Home Medications Allergies Coded Allergies: No Known Drug Allergies (Unverified , 06/21/16) Patient Home Medication List Home Medication List Reviewed: Yes Amoxicillin (Amoxicillin) 500 Mg Capsule, 500 MG PO BID, (Reported) Entered as Reported by: EH ARMANDO on 09/16/21 0815 Benzocaine/Menthol (Dermoplast Pain Relieving [place]) 78 Gm Aerosol, 0 EA TP UD PRN for PAIN- SEE INSTRUCTIONS Prescribed by: MALICK PATEL on 09/17/21 1428 Cephalexin (Cephalexin) 500 Mg Tablet, 500 MG PO BID Prescribed by: MARIA ESTHER VELASQUEZ on 10/16/22 1037 Cyclobenzaprine HCl (Cyclobenzaprine HCl) 10 Mg Tablet, 10 MG PO Q8H PRN for SPASMS Prescribed by: MATTHEW LOZADA on 10/14/22 0840 Dibucaine (Dibucaine) 30 Gm Oint, 0 GM TOP UD PRN for PAIN- SEE INSTRUCTIONS Prescribed by: MALICK PATEL on 09/17/21 142 Docusate Sodium (Docusate Sodium) 100 Mg Capsule, 100 MG PO BID Prescribed by: MALICK PATEL on 09/17/21 142 Ferrous Sulfate (Ferosul) 325 Mg Tablet, 325 MG PO DAILY Prescribed by: MALICK PATEL on 09/17/21 142 Ibuprofen (Ibu) 600 Mg Tablet, 600 MG PO Q6H Prescribed by: MALICK PATEL on 09/17/21 142 Sulfamethoxazole/Trimethoprim (Bactrim Ds Tablet) 1 Each Tablet, 1 EACH PO BID Prescribed by: MATTHEW LOZADA on 10/14/22 0816 Review of Systems Review of Systems Constitutional: fever, malaise EENTM: nose congestion Respiratory: No cough Cardiovascular: No chest pain Gastrointestinal: No abdominal pain Genitourinary: no symptoms reported Musculoskeletal: no symptoms reported Skin: no symptoms reported Psychiatric/Neurological: No Symptoms Reported Past Ihtffzu-Zthwmd-Qanysn Hx Patient Social History Substance use?: No Immunizations Up To Date Tetanus Booster (TDap): Unknown PED Vaccines UTD: Yes First/Initial COVID19 Vaccinat: NONE Second COVID19 Vaccination Sergio: NONE Third COVID19 Vaccination Date: NONE Seasonal Allergies Seasonal Allergies: No Past Medical History Surgery/Hospitalization HX: SCOLIOSIS, ANXIETY Surgeries: No Respiratory: Yes Asthma Cardiac: No Neurological: No Reproductive Disorders: No Genitourinary: No Gastrointestinal: No Musculoskeletal: No Endocrine: No HEENT: No Cancer: No Psychosocial: Yes Anxiety, Depression Integumentary: No Blood Disorders: No Adverse Reaction/Blood Tranf: No Family Medical History Seizure disorder 19 MOTHER Physical Exam Capillary Refill : Height: 5'5" Weight: 130lbs. oz. 58.119357yp; 19.00 BMI Method:Stated General Appearance: WD/WN, no apparent distress Eyes: Bilateral Eye Normal Inspection HEENT: PERRL/EOMI, normal ENT inspection, TMs normal, pharynx normal Neck: non-tender, full range of motion, supple, normal inspection Respiratory: chest non-tender, lungs clear, normal breath sounds, no respiratory distress, no accessory muscle use Cardiovascular: regular rate, rhythm, no edema, no murmur Gastrointestinal: normal bowel sounds, non tender, soft; No distended, No guarding, No rebound Extremities: normal range of motion, non-tender, normal inspection, no pedal edema, no calf tenderness, normal capillary refill Neurologic/Psychiatric: no motor/sensory deficits, alert, normal mood/affect Skin: normal color, warm/dry Lymphatic: no adenopathy Progress/Results/Core Measures Suspected Sepsis SIRS Temperature: Pulse: Respiratory Rate: Blood Pressure / Mean: Results/Orders Lab Results Laboratory Tests Test 10/17/22 19:52 Range/Units My Orders Orders - FILIPE SIMMONS MD Influenza A And B By Pcr (10/17/22 19:32) Covid 19 Inhouse Test (10/17/22 19:32) Vital Signs/I&O Capillary Refill : Progress Note : Progress Note 22-year-old female with above history coming in due to 3 days of flulike symptoms, and likely pyelonephritis. ABCs were intact and vitals were stable on presentation although she is febrile. Well-appearing. She was given IM Toradol as well as levofloxacin given her allergy profile as well as what the E. coli that she grew out was resistant to. Flu and COVID testing sent and are pending. We will call her with results. If flu is positive, does not need prescription given she is young and healthy. Departure Impression Primary Impression: Pyelonephritis Disposition: HOME, SELF-CARE Condition: Stable Departure-Patient Inst. Decision time for Depature: 19:58 Referrals: THAIS KEEN (PCP/Family) Primary Care Physician Patient Instructions: Viral Syndrome (DC) Add. Discharge Instructions: We will call you with your testing results. If you need to call in any prescriptions afterwards, we can do that electronically. Continue to take ibuprofen and Tylenol as needed. You will likely have symptoms for a couple more days given the sounds like it is the flu. Scripts Levofloxacin (Levofloxacin) 750 Mg Tablet 750 MG PO DAILY for 7 Days, #7 TAB Prov: FILIPE SIMMONS MD 10/17/22 Work/School Note: Work Release Form Date Seen in the Emergency Department: Oct 17, 2022 Return to Work: Oct 19, 2022 Restrictions: Return-No Fever (24hrs) FILIPE SIMMONS MD Oct 17, 2022 19:58
[2022-10-17] MEDS ORDERED: LEVO750T PO (20:03)
[2022-10-17] MEDS ORDERED: KETOROLAC 30 MG/ML VIAL IM ONE (20:15)
[2022-10-17 20:24] VITALS: BP 107/68
== END 2022-10-17 20:24 | disposition home or self-care (01) ==
LOC: EDUNIT# 19:23 → ER 19:25
DX: R50.9 Fever, unspecified (principal); R09.81 Nasal congestion; R53.81 Other malaise; N12 Tubulo-interstitial nephritis, not specified as acute or chronic; Z20.822 Contact with and (suspected) exposure to COVID-19
CPT/HCPCS: 87636; 99284

== ENCOUNTER 2023-01-29 09:54 | Emergency (ER) | payer MEDICAID ==
[~2023-01-29] VITALS: Ht 165 cm; Wt 56.0 kg
[~2023-01-29 09:54] MED LIST changes: +LEVO750T PO
--- NOTE | 2023-01-29 10:38 | ED General ---
General Chief Complaint: Fever-Adult/Adol Stated Complaint: VOMITING/FEVER/BACK PAIN/FATIGUE Nursing Triage Note: PT CO OF FEVER, SWEATS, ANN, SL WHEEZING. PT HAS HX ASTHMA, PT CO OF PAIN IN LOWER BACK ABOVE L HIP Source of Information: Patient Exam Limitations: No Limitations History of Present Illness Date Seen by Provider: Jan 29, 2023 Time Seen by Provider: 10:37 Initial Comments Patient is a 22-year-old female who presents to the emergency room with a chief complaint of subjective fever, sweating, frontal headache, cough and shortness of breath. Patient states that she has also had some left flank pain over the last 24 hours. She states she took 800 mg of ibuprofen this morning. Little bit of improvement to her headache. She denies productive cough. She has been nauseated and has vomited in the last 24 hours. She has 2 children under the age of 3 both fully vaccinated. Neither of them are sick. She has been under increased stress recently. She is not COVID vaccinated. She does not believe that she has been around anybody who has been ill. No rashes, joint pain or swelling. No abdominal pain currently. Smokes, no history of illicit substance use. Not sexually active. Timing/Duration: 1-2 Days Severity: Moderate Associated Systoms: Cough, Diaphoresis, Fever/Chills, Headaches, Loss of Appetite, Malaise, Nausea/Vomiting Allergies and Home Medications Allergies Coded Allergies: No Known Drug Allergies (Unverified , 06/21/16) Patient Home Medication List Home Medication List Reviewed: Yes Amoxicillin (Amoxicillin) 500 Mg Capsule, 500 MG PO BID, (Reported) Entered as Reported by: EH ARMANDO on 09/16/21 0815 Benzocaine/Menthol (Dermoplast Pain Relieving [place]) 78 Gm Aerosol, 0 EA TP UD PRN for PAIN- SEE INSTRUCTIONS Prescribed by: MALICK PATEL on 09/17/21 1428 Cephalexin (Cephalexin) 500 Mg Tablet, 500 MG PO BID Prescribed by: MARIA ESTHER VELASQUEZ on 10/16/22 1037 Cyclobenzaprine HCl (Cyclobenzaprine HCl) 10 Mg Tablet, 10 MG PO Q8H PRN for SPASMS Prescribed by: MATTHEW LOZADA on 10/14/22 0840 Dibucaine (Dibucaine) 30 Gm Oint, 0 GM TOP UD PRN for PAIN- SEE INSTRUCTIONS Prescribed by: MALICK PATEL on 09/17/211427 Docusate Sodium (Docusate Sodium) 100 Mg Capsule, 100 MG PO BID Prescribed by: MALICK PATEL on 09/17/211427 Ferrous Sulfate (Ferosul) 325 Mg Tablet, 325 MG PO DAILY Prescribed by: MALICK PATEL on 09/17/211427 Ibuprofen (Ibu) 600 Mg Tablet, 600 MG PO Q6H Prescribed by: MALICK PATEL on 09/17/211427 Levofloxacin (Levofloxacin) 750 Mg Tablet, 750 MG PO DAILY Prescribed by: FILIPE SIMMONS on 10/17/222002 Sulfamethoxazole/Trimethoprim (Bactrim Ds Tablet) 1 Each Tablet, 1 EACH PO BID Prescribed by: MATTHEW LOZADA on 10/14/22 0816 Review of Systems Review of Systems Constitutional: see HPI, fever, malaise EENTM: nose congestion Respiratory: cough Cardiovascular: no symptoms reported Gastrointestinal: nausea, vomiting Genitourinary: no symptoms reported Musculoskeletal: back pain (Left low flank) Skin: no symptoms reported Psychiatric/Neurological: Headache Past Echglsh-Txbkre-Cnbhjb Hx Patient Social History Tobacco Use?: Yes Tobacco type used: Cigarettes Smoking Status: Current Everyday Smoker Substance use?: No Alcohol Use?: Yes Alcohol type: Wine Alcohol Frequency: Couple times a week Pt feels they are or have been: No Immunizations Up To Date Tetanus Booster (TDap): Unknown PED Vaccines UTD: Yes Influenza Vaccine Up-to-Date: No; Not Current First/Initial COVID19 Vaccinat: NONE Second COVID19 Vaccination Sergio: NONE Third COVID19 Vaccination Date: NONE Seasonal Allergies Seasonal Allergies: No Past Medical History Surgery/Hospitalization HX: SCOLIOSIS, ANXIETY, ASTHMA Surgeries: No Respiratory: Yes Asthma Cardiac: No Neurological: No Last Menstrual Period: Dec 29, 2022 Reproductive Disorders: No Genitourinary: No Gastrointestinal: No Musculoskeletal: No Endocrine: No HEENT: No Cancer: No Psychosocial: Yes Anxiety, Depression Integumentary: No Blood Disorders: No Adverse Reaction/Blood Tranf: No Family Medical History Seizure disorder 19 MOTHER Physical Exam Vital Signs Vital Signs - First Documented 01/29/23 10:15 Temp 36.1 Pulse 105 Resp 20 B/P (MAP) 105/62 (76) Pulse Ox 100 Capillary Refill : Less Than 3 Seconds Height, Weight, BMI Height: 5'5" Weight: 130lbs. oz. 58.332382bu; 20.00 BMI Method:Stated General Appearance: WD/WN, Thin Eyes: Bilateral Eye Normal Inspection, Bilateral Eye PERRL HEENT: PERRL/EOMI, TMs Normal, Other (Dry oral mucosa) Neck: Full Range of Motion, Normal Inspection, Supple Respiratory: Lungs Clear, Normal Breath Sounds, No Accessory Muscle Use, No Respiratory Distress Cardiovascular: Regular Rate, Rhythm, Tachycardia Gastrointestinal: Normal Bowel Sounds, Non Tender, Soft Extremity: Normal Capillary Refill, Normal Inspection, Normal Range of Motion, Non Tender, No Calf Tenderness, No Pedal Edema Neurologic/Psychiatric: Alert, Oriented x3, No Motor/Sensory Deficits, Normal Mood/Affect Skin: Normal Color, Warm/Dry Progress/Results/Core Measures Suspected Sepsis SIRS Temperature: Pulse: 105 Respiratory Rate: 20 Blood Pressure 105 /62 Mean: 76 Results/Orders Lab Results Laboratory Tests Test 01/29/23 10:49 01/29/23 11:15 Range/Units SARS-CoV-2 RNA (RT-PCR) Not Detected Not Detecte Urine Color YELLOW Urine Clarity SL CLOUDY Urine pH 7.0 5-9 Urine Specific Turner 1.015 L 1.016-1.022 Urine Protein 2+ H NEGATIVE Urine Glucose (UA) NEGATIVE NEGATIVE Urine Ketones NEGATIVE NEGATIVE Urine Nitrite NEGATIVE NEGATIVE Urine Bilirubin NEGATIVE NEGATIVE Urine Urobilinogen 4.0 < = 1.0 MG/DL Urine Leukocyte Esterase 1+ H NEGATIVE Urine RBC (Auto) TRACE-I H NEGATIVE Urine RBC RARE /HPF Urine WBC 10-25 H /HPF Urine Squamous Epithelial Cells 2-5 /HPF Urine Crystals NONE /LPF Urine Bacteria TRACE /HPF Urine Casts NONE /LPF Urine Mucus NEGATIVE /LPF Urine Culture Indicated YES Urine Opiates Screen NEGATIVE NEGATIVE Urine Oxycodone Screen NEGATIVE NEGATIVE Urine Methadone Screen NEGATIVE NEGATIVE Urine Propoxyphene Screen NEGATIVE NEGATIVE Urine Barbiturates Screen NEGATIVE NEGATIVE Ur Tricyclic Antidepressants Screen NEGATIVE NEGATIVE Urine Phencyclidine Screen NEGATIVE NEGATIVE Urine Amphetamines Screen POSITIVE H NEGATIVE Urine Methamphetamines Screen POSITIVE H NEGATIVE Urine Benzodiazepines Screen NEGATIVE NEGATIVE Urine Cocaine Screen NEGATIVE NEGATIVE Urine Cannabinoids Screen POSITIVE H NEGATIVE My Orders Orders - JYOTSNA GUNDERSON MD Covid 19 Inhouse Test (01/29/23 10:45) Ua Culture If Indicated (01/29/23 10:45) Drug Screen Stat (Urine) (01/29/23 10:45) Urine Bedside (01/29/23 10:45) Isolation Central Supply Req (01/29/23 10:45) Ed Iv/Invasive Line Start (01/29/23 10:45) Ns Iv 1000 Ml (Sodium Chloride 0.9%) (01/29/23 10:45) Metoclopramide Injection (Reglan Injecti (01/29/23 10:45) Diphenhydramine Injection (Benadryl Inje (01/29/23 10:45) Urine Culture (01/29/23 11:15) Medications Given in ED Current Medications Medications Dose Ordered Sig/Mando Route Start Time Stop Time Status Last Admin Dose Admin Diphenhydramine HCl 25 mg ONCE ONCE IVP 01/29/23 10:45 01/29/23 10:47 DC 01/29/23 11:12 25 MG Metoclopramide HCl 5 mg ONCE ONCE IVP 01/29/23 10:45 01/29/23 10:47 DC 01/29/23 11:14 5 MG Vital Signs/I&O 01/29/23 10:15 Temp 36.1 Pulse 105 Resp 20 B/P (MAP) 105/62 (76) Pulse Ox 100 Capillary Refill : Less Than 3 Seconds Blood Pressure Mean: 76 Progress Note : Time: 11:51 Progress Note Patient seen and evaluated. Evaluation today includes urinalysis, urine drug screen, urine test. She was treated with a liter of IV fluids. Her urine drug screen was positive for methamphetamine. This would explain her tachycardia. She does have white blood cells in her urine with leukocyte Estrace. She is asymptomatic of UTI therefore we will let the urinalysis culture before treatment. She is recommended to continue ibuprofen, supportive care Benadryl for nausea. No clinical or objective findings to warrant further testing or admission from the emergency department. Departure Impression Primary Impression: Viral syndrome Additional Impression: Asymptomatic bacteriuria Disposition: 01 HOME, SELF-CARE Condition: Stable Departure-Patient Inst. Decision time for Depature: 11:50 Referrals: THAIS KEEN (PCP/Family) Primary Care Physician Patient Instructions: Viral Syndrome (DC) Add. Discharge Instructions: Drink plenty of fluids to stay well-hydrated. Continue [id number] ibuprofen 800 mg every 8 hours with food as needed for pain. You can take [id number] Benadryl for nausea every 6 hours 1 to 2 tablets. If you develop high fever that is persistent, worsening shortness of breath, worsening vomiting please return to the emergency room for reevaluation. JYOTSNA GUNDERSON MD Jan 29, 2023 10:38
[2023-01-29] MEDS ORDERED: NS IV 1000 ML 1,000 ML IV STA (10:45)
[2023-01-29] MEDS ORDERED: METOCLOPRAMIDE INJ 10 MG/2 ML (REGLAN) IVP ONE (10:45)
[2023-01-29] MEDS ORDERED: diphenhydrAMINE 50 MG/ML INJ (BENADRYL) IVP ONE (10:45)
[2023-01-29 11:25] LABS: BILIRUBIN,URINE NEGATIVE (NEGATIVE); CLARITY,URINE SL CLOUDY; COLOR,URINE YELLOW; GLUCOSE, URINE (UA) NEGATIVE (NEGATIVE); KETONES,URINE NEGATIVE (NEGATIVE); LEUKOCYTE ESTERASE ,URINE 1+ (NEGATIVE); NITRITE,URINE NEGATIVE (NEGATIVE); PROTEIN,URINE 2+ (NEGATIVE)
[2023-01-29 11:33] LABS: BACTERIA,URINE TRACE /HPF; RBC,URINE RARE /HPF
[2023-01-29 11:37] LABS: AMPHETAMINE SCREEN, URINE POSITIVE (NEGATIVE); BENZODIAZEPINES SCREEN URINE NEGATIVE (NEGATIVE); COCAINE SCREEN URINE NEGATIVE (NEGATIVE)
[2023-01-29 11:38] LABS: BARBITURATE SCREEN URINE NEGATIVE (NEGATIVE); CANNABINOID SCREEN, URINE POSITIVE (NEGATIVE); METHADONE STAT NEGATIVE (NEGATIVE); OPIATE SCREEN URINE NEGATIVE (NEGATIVE); OXYCODONE STAT NEGATIVE (NEGATIVE); PROPOXYPHENE STAT NEGATIVE (NEGATIVE); TRICYCLIC ANTIDEPRESSANTS SCRE NEGATIVE (NEGATIVE)
[2023-01-29 12:20] VITALS: BP 105/62
[2023-02-02] MEDS ORDERED: CEPH500T PO (11:52)
== END 2023-01-29 12:20 | disposition home or self-care (01) ==
LOC: EDUNIT# 09:54 → ER 09:56
DX: B34.9 Viral infection, unspecified (principal); R82.71 Bacteriuria; N39.0 Urinary tract infection, site not specified; R06.02 Shortness of breath; R05.9 Cough, unspecified; R61 Generalized hyperhidrosis; R51.9 Headache, unspecified; R11.2 Nausea with vomiting, unspecified; R63.0 Anorexia; F17.210 Nicotine dependence, cigarettes, uncomplicated; Z28.310 Unvaccinated for COVID-19; Z20.822 Contact with and (suspected) exposure to COVID-19
CPT/HCPCS: 80306; 81000; 84703; 87077; 87088; 87186; 87636

== ENCOUNTER 2023-06-13 16:28 | Emergency (ER) | payer MEDICAID ==
[~2023-06-13] VITALS: Ht 165.1 cm; Wt 59.0 kg
--- NOTE | 2023-06-13 17:20 | ED Lower Extremity ---
General Chief Complaint: OB < 20 WEEKS Stated Complaint: RIGHT LEG PAIN/SWELLING/NUMBNESS 18 WKS PREG Nursing Triage Note: PT AMB TO ED BY POV WITH C/O R LEG SWELLING AND NUMBNESS. PT G3, P2, IS 18 WEEKS . PT REPORTS SHE NOTICED R LEG SWELLING X 1 WK, NUMBNESS BEGAN 2 DAYS AGO. PT SAW OB LAST WEEK WHO ORDERED US ON LEG. PT REPORTS SHE HAD RLE SWELLING IN PREVIOUS PREGNANCIES, BUT NOT THIS EARLY AND WAS NOT ACCOMPANIED WITH NUMBNESS. DENIES INJURY. Source: patient Exam Limitations: no limitations History of Present Illness Date Seen by Provider: Jun 13, 2023 Time Seen by Provider: 17:17 Initial Comments Patient is a 22-year-old female presents ED with right leg swelling and numb ness. Symptoms started about a week ago with swelling. She went to her CUSTOMER SERVICE DRIVER Dr. Rutherford. Had a outpatient ultrasound which was negative for DVT. She states she is continue having swelling which has stayed about the same size. She started developing numbness and tingling in the right leg over the past 2 or 3 days. This appears to be worse with movement. She is currently G3, P2 18 weeks . She denies abdominal pain, vaginal bleeding, vaginal discharge, dysuria, hematuria, vomit, diarrhea, headache or dizziness, nausea, vomiting, diarrhea. She reports similar type swelling and pain with her other pregnancies but this was later in her Allergies and Home Medications Allergies Coded Allergies: No Known Drug Allergies (Unverified , 06/21/16) Patient Home Medication List Home Medication List Reviewed: Yes Amoxicillin (Amoxicillin) 500 Mg Capsule, 500 MG PO BID, (Reported) Entered as Reported by: EH ARMANDO on 09/16/21 0815 Benzocaine/Menthol (Dermoplast Pain Relieving [place]) 78 Gm Aerosol, 0 EA TP UD PRN for PAIN- SEE INSTRUCTIONS Prescribed by: MALICK PATEL on 09/17/21 1428 Cephalexin (Cephalexin) 500 Mg Tablet, 500 MG PO BID Prescribed by: MARIA ESTHER VELASQUEZ on 10/16/22 1037 Cephalexin (Cephalexin) 500 Mg Tablet, 500 MG PO TID Prescribed by: PERFECTO ARCEO on 02/02/23 1152 Cyclobenzaprine HCl (Cyclobenzaprine HCl) 10 Mg Tablet, 10 MG PO Q8H PRN for SPASMS Prescribed by: MATTHEW LOZADA on 10/14/22 0840 Dibucaine (Dibucaine) 30 Gm Oint, 0 GM TOP UD PRN for PAIN- SEE INSTRUCTIONS Prescribed by: MALICK PATEL on 09/17/211427 Docusate Sodium (Docusate Sodium) 100 Mg Capsule, 100 MG PO BID Prescribed by: MALICK PATEL on 09/17/211427 Ferrous Sulfate (Ferosul) 325 Mg Tablet, 325 MG PO DAILY Prescribed by: MALICK PATEL on 09/17/211427 Ibuprofen (Ibu) 600 Mg Tablet, 600 MG PO Q6H Prescribed by: MALICK PATEL on 09/17/211427 Levofloxacin (Levofloxacin) 750 Mg Tablet, 750 MG PO DAILY Prescribed by: FILIPE SIMMONS on 10/17/222002 Sulfamethoxazole/Trimethoprim (Bactrim Ds Tablet) 1 Each Tablet, 1 EACH PO BID Prescribed by: MATTHEW LOZADA on 10/14/22 0816 Review of Systems Constitutional: No chills, No diaphoresis EENTM: No hearing loss, No ear pain, No blurred vision Respiratory: No cough, No dyspnea on exertion Cardiovascular: No chest pain Gastrointestinal: No abdominal pain, No diarrhea, No nausea, No vomiting Genitourinary: No decreased output, No discharge Musculoskeletal: No back pain, No joint pain; muscle pain, muscle stiffness Skin: No change in color All Other Systems Reviewed Negative Unless Noted: Yes Past Fhzpjud-Gnsupx-Nqhbpa Hx Patient Social History Tobacco Use?: Yes Tobacco type used: Cigarettes Smoking Status: Current Everyday Smoker Use of E-Cig and/or Vaping dev: No Substance use?: No Alcohol Use?: No Pt feels they are or have been: No Immunizations Up To Date Tetanus Booster (TDap): Unknown PED Vaccines UTD: Yes First/Initial COVID19 Vaccinat: NONE Second COVID19 Vaccination Sergio: NONE Third COVID19 Vaccination Date: NONE Seasonal Allergies Seasonal Allergies: No Past Medical History Surgery/Hospitalization HX: SCOLIOSIS, ANXIETY, ASTHMA Surgeries: No Respiratory: Yes Asthma Cardiac: No Neurological: No Reproductive Disorders: No Genitourinary: No Gastrointestinal: No Musculoskeletal: No Endocrine: No HEENT: No Cancer: No Psychosocial: Yes Anxiety, Depression Integumentary: No Blood Disorders: No Adverse Reaction/Blood Tranf: No Family Medical History Seizure disorder 19 MOTHER Physical Exam Vital Signs Vital Signs - First Documented 06/13/23 16:35 Temp 37.2 Pulse 86 Resp 16 B/P (MAP) 120/69 (86) Pulse Ox 97 O2 Delivery Room Air Capillary Refill : Less Than 3 Seconds Height, Weight, BMI Height: 5'5" Weight: 130lbs. oz. 58.841887io; 21.00 BMI Method:Stated General Appearance: WD/WN, no apparent distress HEENT: PERRL/EOMI, normal ENT inspection, TMs normal, pharynx normal Neck: non-tender, full range of motion, supple Cardiovascular: regular rate, rhythm, no edema, no gallop, no JVD Respiratory: chest non-tender, lungs clear, normal breath sounds, no respiratory distress, no accessory muscle use Gastrointestinal: normal bowel sounds, non tender, soft, no organomegaly Back: normal inspection, no CVA tenderness Hips: bilateral hip non-tender, bilateral hip normal inspection, bilateral hip normal range of motion Legs: bilateral leg non-tender, bilateral leg normal inspection, bilateral leg no evidence of injury Knees: bilateral knee non-tender, bilateral knee normal inspection, bilateral knee normal range of motion Ankles: bilateral ankle non-tender, bilateral ankle normal inspection, bila teral ankle normal range of motion Feet: bilateral foot non-tender, bilateral foot normal inspection, bilateral foot normal range of motion; left foot other (Neurovascular intact right leg) Neurologic/Psychiatric: linoleum mechanic II-XII nml as tested, no motor/sensory deficits, alert, normal mood/affect, oriented x 3 Skin: normal color, warm/dry Lymphatic: no adenopathy Progress/Results/Core Measures Results/Orders Lab Results Laboratory Tests Test 06/13/23 17:30 Range/Units White Blood Count 8.1 4.3-11.0 10^3/uL Red Blood Count 3.82 3.80-5.11 10^6/uL Hemoglobin 11.6 11.5-16.0 g/dL Hematocrit 34 L 35-52 % Mean Corpuscular Volume 89 80-99 fL Mean Corpuscular Hemoglobin 30 25-34 pg Mean Corpuscular Hemoglobin Concent 34 32-36 g/dL Red Cell Distribution Width 13.3 10.0-14.5 % Platelet Count 249 130-400 10^3/uL Mean Platelet Volume 10.0 9.0-12.2 fL Immature Granulocyte % (Auto) 0 % Neutrophils (%) (Auto) 66 42-75 % Lymphocytes (%) (Auto) 24 12-44 % Monocytes (%) (Auto) 7 0-12 % Eosinophils (%) (Auto) 3 0-10 % Basophils (%) (Auto) 0 0-10 % Neutrophils # (Auto) 5.3 1.8-7.8 10^3/uL Lymphocytes # (Auto) 1.9 1.0-4.0 10^3/uL Monocytes # (Auto) 0.6 0.0-1.0 10^3/uL Eosinophils # (Auto) 0.2 0.0-0.3 10^3/uL Basophils # (Auto) 0.0 0.0-0.1 10^3/uL Immature Granulocyte # (Auto) 0.0 0.0-0.1 10^3/uL Sodium Level 135 135-145 MMOL/L Potassium Level 3.6 3.6-5.0 MMOL/L Chloride Level 104 98-107 MMOL/L Carbon Dioxide Level 22 21-32 MMOL/L Anion Gap 9 5-14 MMOL/L Blood Urea Nitrogen 9 7-18 MG/DL Creatinine 0.57 L 0.60-1.30 MG/DL Estimat Glomerular Filtration Rate 130 BUN/Creatinine Ratio 16 Glucose Level 98 70-105 MG/DL Calcium Level 8.8 8.5-10.1 MG/DL Corrected Calcium 9.4 8.5-10.1 MG/DL Total Bilirubin 0.2 0.1-1.0 MG/DL Aspartate Amino Transf (AST/SGOT) 13 5-34 U/L Alanine Aminotransferase (ALT/SGPT) 10 0-55 U/L Alkaline Phosphatase 69 40-136 U/L Total Protein 6.3 L 6.4-8.2 GM/DL Albumin 3.2 3.2-4.5 GM/DL My Orders Orders - FILIPE CHAUDHRY Cbc With Automated Diff (06/13/23 17:16) Comprehensive Metabolic Panel (06/13/23 17:16) Vital Signs/I&O 06/13/23 06/13/23 16:35 18:15 Temp 37.2 Pulse 86 82 Resp 16 16 B/P (MAP) 120/69 (86) 123/73 Pulse Ox 97 98 O2 Delivery Room Air Room Air Blood Pressure Mean: 86 Departure Communication (PCP) Patient is G3, P2. Right lower leg swelling for the past week. Start developing numbness and tingling down into the leg over the past 2 days. No known injury. Her CUSTOMER SERVICE DRIVER ordered an outpatient ultrasound which was negative for DVT according to patient. Do not have these results. She denies any abdominal pain, vaginal bleeding, fever, chills, history of kidney disease. On exam no significant swelling bruising or redness noted. No evidence of cellulitis. No calf or thigh tenderness. Neurovascular intact. Dorsalis pedis +2, posterior tibialis +2. Normal active range of motion of the right leg. She has no thoracic or lumbar midline tenderness. cardiac activity was obtained 144 bpm. CBC, CMP was ordered which noted normal kidney function. Normal white blood count. Vital signs remained stable. Not able to appreciate that much swelling. She has had previous swelling in her legs from her other pregnancies but typically occurred later in the second and third trimester. Other concerns would be venous insufficiency, uterus pressing on veins, sciatica with the numbness and tingling. No specific injury to her back. Would not suspect sciatica with this early in or even the uterus pressing on the veins. She does have warm extremities. Pulses noted bilateral. Not necessarily concern for PAD. There is no evidence of preeclampsia. She states she has been on her feet for long period of time which could be contributing to this. Avoid standing for long period of time. Suggest sleeping on your left side. May wear compression stockings. Follow-up with Dr. Rutherford in the next 2 or 3 days for reevaluation. Return precaution were discussed. Impression Primary Impression: Leg pain Disposition: 01 HOME, SELF-CARE Condition: Stable Departure-Patient Inst. Decision time for Depature: 18:13 Referrals: ALE RUTHERFORD MD (PCP/Family) Primary Care Physician Patient Instructions: Leg Muscle Strain ED Add. Discharge Instructions: Recommend Tylenol, stretching. Follow-up with your CUSTOMER SERVICE DRIVER for further evaluation. All discharge instructions reviewed with patient and/or family. Voiced understanding. FILIPE CHAUDHRY Jun 13, 2023 17:19
[2023-06-13 17:35] LABS: BASOPHILS % (AUTO) 0 % (0-10); EOSINOPHILS # (AUTO) 0.2 10^3/uL (0.0-0.3); EOSINOPHILS % (AUTO) 3 % (0-10); HEMATOCRIT 34 % (35-52); HEMOGLOBIN 11.6 g/dL (11.5-16.0); LYMPHOCYTES # (AUTO) 1.9 10^3/uL (1.0-4.0); LYMPHOCYTES % (AUTO) 24 % (12-44); MEAN CORPUSCULAR HEMOGLOBIN 30 pg (25-34); MEAN CORPUSCULAR HGB CONC 34 g/dL (32-36); MEAN CORPUSCULAR VOLUME 89 fL (80-99); MONOCYTES # (AUTO) 0.6 10^3/uL (0.0-1.0); MONOCYTES % (AUTO) 7 % (0-12); NEUTROPHILS # (AUTO) 5.3 10^3/uL (1.8-7.8); NEUTROPHILS % (AUTO) 66 % (42-75); PLATELET COUNT 249 10^3/uL (130-400); WHITE BLOOD COUNT 8.1 10^3/uL (4.3-11.0)
[2023-06-13 18:04] LABS: ALBUMIN 3.2 GM/DL (3.2-4.5); BILIRUBIN,TOTAL 0.2 MG/DL (0.1-1.0); CALCIUM 8.8 MG/DL (8.5-10.1); CREATININE SERUM 0.57 MG/DL (0.60-1.30); POTASSIUM 3.6 MMOL/L (3.6-5.0); TOTAL PROTEIN 6.3 GM/DL (6.4-8.2)
[2023-06-13 18:15] VITALS: BP 123/73
== END 2023-06-13 18:15 | disposition home or self-care (01) ==
LOC: EDUNIT# 16:28 → ER 16:31
DX: O99.891 Other specified diseases and conditions complicating pregnancy (principal); M79.604 Pain in right leg; M79.89 Other specified soft tissue disorders; O99.332 Smoking (tobacco) complicating pregnancy, second trimester; F17.210 Nicotine dependence, cigarettes, uncomplicated; Z3A.18 18 weeks gestation of pregnancy; Z28.310 Unvaccinated for COVID-19
CPT/HCPCS: 36415; 80053; 85025; 99281

== ENCOUNTER 2023-09-12 17:57 | Emergency (ER) | payer MEDICAID ==
[~2023-09-12] VITALS: Ht 165 cm; Wt 61.0 kg
[2023-09-12 18:54] VITALS: BP 119/70
--- NOTE | 2023-09-12 19:19 | ED Cough/URI ---
General Chief Complaint: Cough/Cold/Flu Symptoms Stated Complaint: SORE THROAT, RUNNY NOSE, CONGESTION Nursing Triage Note: PT STATES COUGH CONGESTION FOR ABOUT 4 DAYS, CHILLS OFF AND ON. 30 WKS Source: patient Exam Limitations: no limitations History of Present Illness Date Seen by Provider: Sep 12, 2023 Time Seen by Provider: 18:18 Initial Comments 22-year-old G3, P2 female at 30 weeks gestation presents to the ER with complaint of cough, congestion, runny nose, sore throat. She states that she thinks she has been having fevers, reports she has been sweating. She states that both of her children have similar symptoms. She denies shortness of air, abdominal pain, nausea, vomiting. Reports preeclampsia with her previous 2 pregnancies. She has not yet been diagnosed with preeclampsia for this . She is going to be induced early for this . Allergies and Home Medications Allergies Coded Allergies: No Known Drug Allergies (Unverified , 06/21/16) Patient Home Medication List Home Medication List Reviewed: Yes Amoxicillin (Amoxicillin) 500 Mg Capsule, 500 MG PO BID, (Reported) Entered as Reported by: EH ARMANDO on 09/16/21 0815 Benzocaine/Menthol (Dermoplast Pain Relieving [place]) 78 Gm Aerosol, 0 EA TP UD PRN for PAIN- SEE INSTRUCTIONS Prescribed by: MALICK PATEL on 09/17/21 1428 Cephalexin (Cephalexin) 500 Mg Tablet, 500 MG PO BID Prescribed by: MARIA ESTHER VELASQUEZ on 10/16/22 1037 Cephalexin (Cephalexin) 500 Mg Tablet, 500 MG PO TID Prescribed by: PERFECTO ARCEO on 02/02/23 1152 Cyclobenzaprine HCl (Cyclobenzaprine HCl) 10 Mg Tablet, 10 MG PO Q8H PRN for SPASMS Prescribed by: MATTHEW LOZADA on 10/14/22 0840 Dibucaine (Dibucaine) 30 Gm Oint, 0 GM TOP UD PRN for PAIN- SEE INSTRUCTIONS Prescribed by: MALICK PATEL on 09/17/21 1428 Docusate Sodium (Docusate Sodium) 100 Mg Capsule, 100 MG PO BID Prescribed by: MALICK PATEL on 09/17/21 142 Ferrous Sulfate (Ferosul) 325 Mg Tablet, 325 MG PO DAILY Prescribed by: MALICK PATEL on 09/17/21 142 Ibuprofen (Ibu) 600 Mg Tablet, 600 MG PO Q6H Prescribed by: MALICK PATEL on 09/17/21 1428 Levofloxacin (Levofloxacin) 750 Mg Tablet, 750 MG PO DAILY Prescribed by: FILIPE SIMMONS on 10/17/222002 Sulfamethoxazole/Trimethoprim (Bactrim Ds Tablet) 1 Each Tablet, 1 EACH PO BID Prescribed by: MATTHEW LOZADA on 10/14/22 0816 Review of Systems Review of Systems Constitutional: see HPI Expected Date of Delivery: Nov 15, 2023 Past Euvvnlt-Enwhwa-Hcbjii Hx Patient Social History Tobacco Use?: No Substance use?: No Alcohol Use?: No Immunizations Up To Date Tetanus Booster (TDap): Unknown PED Vaccines UTD: Yes First/Initial COVID19 Vaccinat: NONE Second COVID19 Vaccination Sergio: NONE Third COVID19 Vaccination Date: NONE Seasonal Allergies Seasonal Allergies: No Past Medical History Surgery/Hospitalization HX: SCOLIOSIS, ANXIETY, ASTHMA Surgeries: No Respiratory: Yes Asthma Cardiac: No Neurological: No Expected Date of Delivery: Nov 15, 2023 Reproductive Disorders: No Genitourinary: No Gastrointestinal: No Musculoskeletal: No Endocrine: No HEENT: No Cancer: No Psychosocial: Yes Anxiety, Depression Integumentary: No Blood Disorders: No Adverse Reaction/Blood Tranf: No Family Medical History Seizure disorder 19 MOTHER Physical Exam Vital Signs - First Documented 09/12/23 18:54 Temp 36.0 Pulse 115 Resp 20 B/P (MAP) 119/70 (86) Pulse Ox 99 O2 Delivery Room Air Capillary Refill : Less Than 3 Seconds Height: 5'5" Weight: 130lbs. oz. [id number]; 22.00 BMI Method:Stated General Appearance: WD/WN, no apparent distress HEENT: TMs normal, pharyngeal erythema (Mild) Neck: supple, normal inspection Respiratory: lungs clear, normal breath sounds, no respiratory distress, no accessory muscle use Cardiovascular: regular rate, rhythm Extremities: normal range of motion, normal inspection Neurologic/Psychiatric: alert, normal mood/affect Skin: normal color, warm/dry Progress/Results/Core Measures Suspected Sepsis SIRS Temperature: Pulse: 115 Respiratory Rate: 20 Blood Pressure 119 /70 Mean: 86 Results/Orders Lab Results Laboratory Tests Test 09/12/23 19:15 Range/Units Influenza Type A (RT-PCR) Not Detected Not Detecte Influenza Type B (RT-PCR) Not Detected Not Detecte SARS-CoV-2 RNA (RT-PCR) Not Detected Not Detecte Group A Streptococcus Screen Not Detected NotDetected My Orders Orders - ELDA LYONS APRN Covid 19 Inhouse Test (09/12/23 19:09) Influenza A And B By Pcr (09/12/23 19:09) Rapid Strep A Screen (09/12/23 19:09) Heart Tones (09/12/23 19:19) Vital Signs/I&O 09/12/23 09/12/23 09/12/23 18:54 18:59 20:02 Temp 36.0 Pulse 115 108 Resp 20 B/P (MAP) 119/70 (86) Pulse Ox 99 O2 Delivery Room Air Room Air Capillary Refill : Less Than 3 Seconds Blood Pressure Mean: 86 Progress Note : Progress Note Patient seen and evaluated, resting comfortably in bed, no acute distress. Based on exam and symptoms, COVID, flu, strep swabs ordered. heart tones ordered. 2024 heart tones normal in the 150s. COVID, flu, strep negative. Maylin langford's children were seen in the ER with her as well. They were both positive for RSV. Patient likely has RSV as well. Patient's heart rate improved to 108. Patient is stable for discharge. Discharge instructions and return precautions provided. Departure Impression Primary Impression: Upper respiratory infection Disposition: 01 HOME, SELF-CARE Condition: Stable Departure-Patient Inst. Decision time for Depature: 20:28 Referrals: ALE RUTHERFORD MD (PCP/Family) Primary Care Physician Patient Instructions: Upper Respiratory Infection ED Add. Discharge Instructions: Make sure you are drinking plenty of water. Take Tylenol or ibuprofen as needed for pain and fever. Sleep with a humidifier at night to help with symptoms, make sure you use distilled water. Return for shortness of breath, or any other new, concerning, or worsening symptoms. All discharge instructions reviewed with patient and/or family. Voiced understanding. ELDA LYONS APRN Sep 12, 2023 19:18
== END 2023-09-12 20:36 | disposition home or self-care (01) ==
LOC: EDUNIT# 17:57 → ER 17:59
DX: O99.513 Diseases of the respiratory system complicating pregnancy, third trimester (principal); J06.9 Acute upper respiratory infection, unspecified; Z3A.30 30 weeks gestation of pregnancy
CPT/HCPCS: 87430; 87636